=== PATIENT | male | born 1945 | race Caucasian/White ===

== ENCOUNTER 2018-02-13 13:32 | Outpatient (RCR) | payer MEDICARE, MEDICAID, SELFPAY ==
--- NOTE | 2018-02-12 15:01 | NT_ITS ---
NON TREATMENT NOTE: 02/12/18 Patient was a no show no call for today's appointment.
--- NOTE | 2018-02-13 13:17 | PTTR_ITS ---
DATE: 02/13/18 SUBJECTIVE: Pt states that he is doing ok for the most part. Feels like he is getting a little bit stronger. OBJECTIVE: Manual therapy: ([id number]).Pt placed in the supine position receiving oscillatory lateral distraction, as well as scapular jiggles to decrease muscle tension. He is stretched through the pectorals and biceps with low load long duration holds, this is all occurring at the L shoulder. Pt mobilized to end range shoulder flexion, ER and IR without any functional deficit. He is then positioned into prone receiving PA glides to the thoracic spine and light STM through the thoracic paraspinals and with a light scapular framing applied through the L shoulder girdle as well, particularly focusing on the posterior cuff. Pt tolerates treatment well. Direct treatment time: 25 min Total treatment time: 25 min direct pt care WILFRIDO/bakari
--- NOTE | 2018-02-27 13:51 | NT_ITS ---
NON TREATMENT NOTE: 02/27/18 Patient was a no show no call for today's scheduled appointment
== END 2018-03-07 23:59 | disposition home or self-care (01) ==
LOC: PT 13:32
PROVIDERS: PCP Nurse Practitioner Family; Referring Provider Nurse Practitioner Family; Visit Provider Nurse Practitioner Family
DX: M25.512 Pain in left shoulder (principal); M54.5 Low back pain; M25.812 Other specified joint disorders, left shoulder; M79.89 Other specified soft tissue disorders
CPT/HCPCS: 97140

== ENCOUNTER 2018-07-30 01:06 | Outpatient (CLI) | payer MEDICARE, MEDICAID, SELFPAY ==
--- NOTE | 2018-07-30 10:17 | DI.MRI_ITS ---
SYMPTOM/DIAGNOSIS: SPINAL STENOSIS, M48.00, M17.9, OA, CHRONIC NECK PAIN, NUMBNESS BILAT FINGERS CERVICAL SPINE MRI: The study was conducted according to the usual protocol. The paravertebral soft tissues are intact. Note is made of degenerative disease and facet joint arthrosis throughout the cervical spine. There is minimal T 2 signal increase within the cervical cord at the C 3-4 level which is suspicious for a minimal myelopathy. There is no fracture or subluxation. The craniocervical portion of the spine is unremarkable. At C 2-3, there is mild left neural foraminal narrowing. At C 3-4, there is posterior disc osteophyte protrusion and resultant moderate spinal stenosis and bilateral foraminal stenosis. At C 4-5,. there is posterior disc osteophyte ridging. Mild to moderate spinal stenosis is evident. There is moderate to severe bilateral foraminal stenosis at this level. At C 5-6, there is asymmetric left side posterior disc osteophyte ridging. There is mild spinal stenosis and moderate bilateral foraminal stenosis is identified. At C 6-7, there is minimal posterior disc osteophyte ridging and no evidence of spinal stenosis. SUMMARY: Degenerative changes are noted throughout the cervical spine as described above. There is moderate spinal stenosis and findings suspicious for a mild cervical myelopathy at C 3-4. The findings to be correlated with the specifics of the patient's clinical status.
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
== END 2018-07-30 01:26 ==
PROVIDERS: PCP Nurse Practitioner Family; Visit Provider Nurse Practitioner Family
DX: M54.2 Cervicalgia (principal); R20.0 Anesthesia of skin; M48.00 Spinal stenosis, site unspecified; M47.12 Other spondylosis with myelopathy, cervical region
CPT/HCPCS: 72141

== ENCOUNTER 2019-02-03 08:27 | Outpatient (REF) | payer MEDICARE, MEDICAID, SELFPAY ==
[2019-02-03 12:57] LABS: HCT 40.6 % (40.0-50.0); HGB 13.6 g/dL (13.5-17.5); Mean Corp. HGB Concentration 33.5 g/dL (32.0-36.0); Mean Corpuscular Hemoglobin 33.6 pg (27.0-33.0); Mean Corpuscular Volume 100.2 fL (80-95); Mean Platelet Volume 10.6 fL (8.0-11.0); Platelet Count 234 x1000/uL (130-400); RBC 4.05 m/cumm (4.50-6.00); RBC Distribution Width 11.7 % (11.8-14.1); White Blood Cell Count 5.12 k/cumm (4.4-10.8)
[2019-02-03 13:30] LABS: ALT 26 U/L (12-78); AST 26 U/L (15-37); Albumin 3.7 g/dL (3.4-5.0); Alkaline Phosphatase 78 U/L (46-116); Anion Gap 8.4 mmol/L (3-11); BUN 15 mg/dL (7-18); Bilirubin, Total 0.4 mg/dL (0.2-1.0); CO2 27.6 mmol/L (21.0-32.0); CREATININE 0.89 mg/dL (0.70-1.30); Calcium 8.5 mg/dL (8.5-10.1); Chloride 102 mmol/L (98-107); Glucose 88 mg/dL (70-100); Potassium 4.5 mmol/L (3.5-5.1); Sodium 138 mmol/L (136-145); TSH (W/Ref FT4) 1.37 uIU/mL (0.36-3.74); Total Protein 6.5 g/dL (6.4-8.2)
== END 2019-02-03 08:47 ==
LOC: NCHCN 08:27
PROVIDERS: PCP Nurse Practitioner Family; Visit Provider Nurse Practitioner Family
DX: D64.9 Anemia, unspecified (principal); R42 Dizziness and giddiness; R56.9 Unspecified convulsions; Z51.81 Encounter for therapeutic drug level monitoring; Z79.899 Other long term (current) drug therapy
CPT/HCPCS: 80053; 85027; 80185; 84443

== ENCOUNTER 2019-03-09 13:06 | Emergency (ER) | payer MEDICARE, MEDICAID, SELFPAY ==
[2019-03-09 13:16] VITALS: BP 137/79; PULSE 65; RESP 18; TEMP 36.7; O2SAT 96
--- NOTE | 2019-03-09 13:37 | DI.RAD_ITS ---
SYMPTOMS/DIAGNOSIS: PAIN LEFT ELBOW: There is spurring at the triceps insertion on the olecranon. No fracture or joint effusion is seen. The joint spaces are well maintained. IMPRESSION: No acute abnormality.
--- NOTE | 2019-03-09 14:06 | DI.VRAD_ITS ---
EXAM: XR Left Elbow EXAM DATE/TIME: 03/09/2019 1:26 PM CLINICAL HISTORY: 73 years old, male; Left; Patient HX: Elbow pain, no known injury. ; Additional info: Pain on external rotation. TECHNIQUE: Imaging protocol: XR Left elbow. Views: 3 or more views. COMPARISON: CR LEFT ELBOW COMPLETE 09/24/2017 5:56 PM FINDINGS: Bones/joints: No acute fracture or dislocation is identified. There is again mild osteophyte formation of the lateral epicondyle. A similar posterior olecranon osteophyte is present. Soft tissues: The fat pads are not significantly displaced. The soft tissues appear grossly unremarkable. IMPRESSION: Degenerative changes as described similar to 09/24/17. Dictated and Authenticated by: Sunil Miramontes MD. Ordering:KG Provider Temporary
--- NOTE | 2019-03-09 14:07 | W.ED.GENAD ---
Discharge Plan Disposition Patient Disposition: HOME Condition: Stable Discharge Details Chief Complaint: Orthopedic Clinical Impression: Tendinopathy of left elbow Primary Care Provider: Darrell Edouard ED Provider: Omer Braun Home Meds and New Rx's Prescriptions: No Action Flovent HFA 220 mcg/actuation HFA aerosol inhaler 2 puff IH BID RF: 0 acetaminophen [Tylenol Extra Strength] 500 mg tablet 1,000 mg PO PRN PRNRF: 0 hydrocortisone 2.5 % cream 1 applic TP BID RF: 0 phenytoin sodium extended [Dilantin Extended] 100 mg capsule 200 mg PO DAILY RF: 0 albuterol sulfate [Proventil HFA] 90 mcg/actuation HFA aerosol inhaler 2 puff Inhalation .COMPLEX PRNRF: 0 Discharge Instructions Instructions: Elbow Sprain (ED), Tendinitis (ED) Additional Instructions: Over the next 2 to 3 days please rest your left elbow, apply ice for any swelling or discomfort, and take ibuprofen 400 mg every 4-6 hours as needed for pain control. You may slowly advance activity as tolerated by pain and discomfort and if not improving in the next 1 to 2 weeks please follow-up with your primary care provider for reassessment Referrals: Darrell Edouard, PRODUCTION ADMINISTRATOR [Primary Care Provider] - 2 weeks (As needed for reassessment) Discharge Data Discharge Date/Time-TO BE ENTERED AT DEPARTURE: 03/09/19 14:22 Medical Decision Making Patient presenting to the emergency department for chief complaint of left elbow pain. Patient states he was lifting and moving some things around this morning and noticed a pop and significant amount of pain to his elbow. Patient denies any blunt trauma fall or other injury except for the lifting. Patient denies any numbness or tingling but states persistent pain in the elbow. Physical exam shows significant tenderness to the lateral epicondyle otherwise patient has full range of motion, no noted crepitus, no redness swelling or other physical exam findings noted. Plan to do radiological imaging. Imaging reviewed and shows FINDINGS: Bones/joints: No acute fracture or dislocation is identified. There is again mild osteophyte formation of the lateral epicondyle. A similar posterior olecranon osteophyte is present. Soft tissues: The fat pads are not significantly displaced. The soft tissues appear grossly unremarkable. Given this I doubt any occult fracture but more concern for tendinopathy given lifting type injury. Patient was given an Eamon bandage for his elbow which did improve some of his symptoms he was encouraged to rest ice and use compression over the next couple days. Patient to continue to use acetaminophen for discomfort and return for any new or worsening symptoms otherwise to follow-up as needed for reassessment. HPI General Mode of arrival: ambulatory. Date/Time Provider Initiated Documentation: 03/09/19 13:47. Limitations to Documentation: no limitations. Information obtained by: patient and RN notes reviewed. History of Present Illness 73 year old M presents to the emergency department with the chief complaint of Left elbow pain, described as moderate, with intensity rated at 6. Quality is described as sharp, and is localized to the left and upper extremity. Patient started experiencing this hour(s) (4) and it has been constant. No relieving factors improve symptom(s), Other factors that worsen symptoms (Lifting something heavy) . Patient notes no other symptoms.. Patient did receive the following treatments prior to arrival, none Related Data Home Medications Medication Instructions Recorded Confirmed acetaminophen 500 mg tablet 1,000 mg PO PRN PRN tab 09/03/18 03/04/19 albuterol sulfate 90 mcg/actuation 2 puff INHALATION .COMPLEX PRN 09/03/18 03/04/19 aerosol inhaler fluticasone propionate 220 2 puff IH BID gm 09/03/18 03/04/19 mcg/actuation HFA aerosol inhaler hydrocortisone 2.5 % topical cream 1 applic TP BID gm 09/03/18 03/04/19 phenytoin sodium extended 100 mg 200 mg PO DAILY cap 09/03/18 03/09/19 capsule Allergies Allergy/AdvReac Type Severity Reaction Status Date / Time Penicillins Allergy Intermediate Itching Unverified 03/09/19 13:21 Sulfa (Sulfonamide Allergy Unknown unknown Unverified 03/09/19 13:21 Antibiotics) aspirin AdvReac Severe Stomch Unverified 03/09/19 13:21 baldwin oxaprozin [Oxaprozin] AdvReac Intermediate Itching Unverified 03/09/19 13:21 carbamazepine AdvReac Mild Feel Unverified 03/09/19 13:21 dopey mushrooms AdvReac Unknown Nausea Uncoded 03/09/19 13:21 General Stated Complaint: Orthopedic SIMON: 4 Review of Systems Musculoskeletal Reports as per HPI, Denies numbness and Denies tingling Integumentary/Breasts Denies rash, Denies sores and Denies wounds Neurologic Denies numbness and Denies tingling [facility] Medical History Adjustment disorder (Acute) Anemia (Chronic) Asthma (Chronic) Cervicalgia (Acute) Chest pain of unknown etiology (Acute) Depression (Chronic) Dizzy spells (Acute) Dry mouth (Acute) Dysrhythmia (Acute) Epilepsia (Acute) Erectile dysfunction (Acute) GERD (gastroesophageal reflux disease) (Chronic) Grief reaction (Acute) Low back pain (Acute) Migraine headache (Chronic) Muscle spasm (Acute) Osteoarthritis, knee (Acute) Seizure disorder (Chronic) Shoulder joint pain (Acute) Spinal stenosis (Acute) Tension headache (Acute) Surgical History H/O cataract removal with insertion of prosthetic lens (Acute) History of back surgery (Acute) History of tooth extraction (Acute) 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 Social History Smoking/Tobacco Use Status: Former Tobacco Use Alcohol Intake: never Drug use: Rarely Substance use type: does not use Household members: none Housing: apartment Number of Children: 3 current occupation: volunteers What type of physical activity do you participate in: none Do you feel safe at home: Yes Do you feel safe in your relationship?: Yes Exam Const General: cooperative and no acute distress Orientation: alert, awake and oriented x3 Resp Effort & Inspection: normal respiratory effort and able to speak in complete sentences Cardio Rate: regular rate Rhythm: regular rhythm Extrem General: normal exam except as noted Left upper extremity: elbow/forearm Details: tenderness Location: of the lateral epicondyle Details: with resisted pronation, normal ROM and distal pulses intact; no ecchymosis and no deformity Course Vital Signs Temperature 36.7 C 03/09/19 13:16 Pulse 65 03/09/19 13:16 Respiratory Rate 18 03/09/19 13:16 Blood Pressure 137/79 03/09/19 13:16 Pulse Oximetry 96 03/09/19 13:16 Temperature 36.7 C 03/09/19 13:16 Temperature Source Skin 03/09/19 13:16 Pulse 65 03/09/19 13:16 Respiratory Rate 18 03/09/19 13:16 Respiratory Effort Non-Labored 03/09/19 13:19 Blood Pressure 137/79 03/09/19 13:16 Blood Pressure Position Sitting 03/09/19 13:16 Pulse Oximetry 96 03/09/19 13:16 Oxygen Delivery Method Room Air 03/09/19 13:16 Oxygen Flow Rate 0 03/09/19 13:16 Pain Level 6 03/09/19 13:19
[2019-03-09] MEDS: Ibuprofen 600 MG TAB PO (14:22)
== END 2019-03-09 14:22 | disposition home or self-care (01) ==
PROVIDERS: Emergency Provider Nurse Practitioner Family; PCP Nurse Practitioner Family
DX: M77.12 Lateral epicondylitis, left elbow (principal); X50.9XXA Other and unspecified overexertion or strenuous movements or postures, initial encounter
CPT/HCPCS: 99283; 73080

== ENCOUNTER 2019-04-06 08:07 | Outpatient (REF) | payer MEDICARE, MEDICAID, SELFPAY ==
[2019-04-06 13:34] LABS: Folate 4.3 ng/mL (8.6-20.0); Vitamin B12 278 pg/mL (193-986)
[2019-04-06 14:01] LABS: PHENYTOIN (DILANTIN) 7.7 ug/mL (10.0-20.0)
== END 2019-04-06 08:27 ==
LOC: NCHCN 08:07
PROVIDERS: PCP Nurse Practitioner Family; Visit Provider Nurse Practitioner Family
DX: R53.83 Other fatigue (principal); D53.9 Nutritional anemia, unspecified; R56.9 Unspecified convulsions
CPT/HCPCS: 80185; 82607; 82746

== ENCOUNTER 2019-04-16 14:29 | Outpatient (CLI) | payer MEDICARE, MEDICAID, SELFPAY ==
--- NOTE | 2019-04-16 14:30 | DI.RAD_ITS ---
EXAM: XR WRIST LT COMP NAVICULAR INDICATION: left wrist pain after punching a refrigerator M25.532 PAIN LT WRIST. COMPARISON: No exams were available for comparison TECHNIQUE: 2D digital imaging was performed. FINDINGS: Four views were obtained. Carpal alignment appears within normal limits. No fracture is seen. IMPRESSION:
== END 2019-04-16 14:49 ==
PROVIDERS: PCP Nurse Practitioner Family; Visit Provider Nurse Practitioner Family
DX: M25.532 Pain in left wrist (principal)
CPT/HCPCS: 73110

== ENCOUNTER → 2019-04-27 09:40 | Outpatient (BNVA) | payer MEDICARE, MEDICAID, SELFPAY | PROVIDERS: PCP Nurse Practitioner Family; Referring Provider Nurse Practitioner Family; Visit Provider Student in an Organized Health Care Education/Training Program | DX: M77.9 Enthesopathy, unspecified (principal); W22.09XA Striking against other stationary object, initial encounter | CPT/HCPCS: 99203; 99214; L3908 ==

== ENCOUNTER 2019-05-15 10:27 | Emergency (ER) | payer MEDICARE, MEDICAID, SELFPAY ==
[2019-05-15 10:36] VITALS: BP 133/86; PULSE 77; RESP 16; TEMP 37.1; O2SAT 95
--- NOTE | 2019-05-15 10:48 | ED.GENADUL_ITS ---
Discharge Plan Disposition Patient Disposition: HOME Discharge Details Chief Complaint: RashLesion Clinical Impression: Rash, Bed bug bite Primary Care Provider: Darrell Edouard ED Provider: Leland Crews Home Meds and New Rx's Prescriptions: New diphenhydramine HCl [Benadryl] 25 mg capsule 25 mg PO TID PRN (Reason: itching) Qty: 30 RF: 0 hydrocortisone [Cortisone (hydrocortisone)] 1 % cream 1 applic TP BID PRN (Reason: rash) Qty: 30 RF: 0 Continued Flovent HFA 220 mcg/actuation HFA aerosol inhaler 2 puff IH BID RF: 0 phenytoin sodium extended [Dilantin Extended] 100 mg capsule 200 mg PO DAILY RF: 0 albuterol sulfate [Proventil HFA] 90 mcg/actuation HFA aerosol inhaler 2 puff Inhalation .COMPLEX PRNRF: 0 Discharge Instructions Instructions: Bed Bugs (ED) Additional Instructions: Please take medications as prescribed. I am concerned that you have been exposed to bedbugs. Please speak to hotel administration about changing the room and notify them of likely bedbug exposure. Please wash all of your close in hot water. Please contact your primary care physician to arrange follow-up. Return to the ER for any worsening or new concerning symptoms. You are not currently contagious. Bed bugs may hide on clothes, fabrics and linens. All potentially exposed clothes should be washed in hot water. Referrals: Darrell Edouard, PURCHASING ASSOCIATE [Primary Care Provider] - Medical Decision Making 73-year-old male here with rash left upper arm and right upper arm, grouped macules that have been itching over the past week. Patient is staying in a mot el with apparent bedbug issue. Rashes consistent with bedbug bites. Will prescribe Benadryl and cortisone cream. HPI General Mode of arrival: ambulatory . Date/Time Provider Initiated Documentation: 05/15/19 10:35 . Limitations to Documentation: no limitations . Information obtained by: patient . HPI Narrative: 73yo m presents with chief complete of rash. Patient notes rash on his left upper arm that has been itching for the past week. He has similar smaller area of rash right upper arm. No associated fever. Patient has been living in a motel for the past couple we eks. He notes hotel management has been concerned about bedbugs. Related Data Home Medications Medication Instructions Recorded Confirmed albuterol sulfate 90 mcg/actuation 2 puff INHALATION .COMPLEX PRN 09/03/18 05/15/19 aerosol inhaler fluticasone propionate 220 2 puff IH BID gm 09/03/18 05/15/19 mcg/actuation HFA aerosol inhaler phenytoin sodium extended 100 mg 200 mg PO DAILY cap 09/03/18 05/15/19 capsule diphenhydramine HCl [Benadryl] 25 mg PO TID PRN #30 cap 05/15/19 hydrocortisone [Cortisone 1 applic TP BID PRN #30 gm 05/15/19 (hydrocortisone)] Previous Rx's Medication Instructions Recorded diphenhydramine HCl [Benadryl] 25 mg PO TID PRN #30 cap 05/15/19 hydrocortisone [Cortisone 1 applic TP BID PRN #30 gm 05/15/19 (hydrocortisone)] Allergies Allergy/AdvReac Type Severity Reaction Status Date / Time Penicillins Allergy Intermediate Itching Unverified 05/15/19 10:39 Sulfa (Sulfonamide Allergy Unknown unknown Unverified 05/15/19 10:39 Antibiotics) aspirin AdvReac Severe Stomch Unverified 05/15/19 10:39 baldwin oxaprozin [Oxaprozin] AdvReac Intermediate Itching Unverified 05/15/19 10:39 carbamazepine AdvReac Mild Feel Unverified 05/15/19 10:39 dopey mushrooms AdvReac Unknown Nausea Uncoded 05/15/19 10:39 General Stated Complaint: RashLesion SIMON: 4 Review of Systems Constitutional Constitutional: Denies fever(s) Integumentary/Breasts Skin/Breast: Reports as per HPI [facility] Medical History Adjustment disorder (Acute) Anemia (Chronic) Asthma (Chronic) Cervicalgia (Acute) Chest pain of unknown etiology (Acute) Depression (Chronic) Dizzy spells (Acute) Dry mouth (Acute) Dysrhythmia (Acute) Epilepsia (Acute) Erectile dysfunction (Acute) GERD (gastroesophageal reflux disease) (Chronic) Grief reaction (Acute) Low back pain (Acute) Migraine headache (Chronic) Muscle spasm (Acute) Osteoarthritis, knee (Acute) Seizure disorder (Chronic) Shoulder joint pain (Acute) Spinal stenosis (Acute) Tension headache (Acute) Surgical History H/O cataract removal with insertion of prosthetic lens (Acute) History of back surgery (Acute) History of tooth extraction (Acute) 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 Social History Smoking/Tobacco Use Status: Former Tobacco Use Alcohol Intake: never Drug use: Never Substance use type: does not use Household members: none Housing: apartment Number of Children: 3 current occupation: volunteers Current gender identity: male What type of physical activity do you participate in: none Do you feel safe at home: Yes Do you feel safe in your relationship?: Yes Exam Const General: cooperative Orientation: alert and awake Resp Effort & Inspection: normal respiratory effort Auscultation: clear to auscultation bilaterally Cardio Rate: regular rate Rhythm: regular rhythm Skin General skin exam: erythema (mild) and no induration Rashes: rashes noted (Left upper arm with group of raised papules) Extrem Right upper extremity: no edema Left upper extremity: no edema Course Vital Signs Vital signs: Vital Signs Temperature 37.1 C 05/15/19 10:36 Pulse 77 05/15/19 10:36 Respiratory Rate 16 05/15/19 10:36 Blood Pressure 133/86 05/15/19 10:36 Pulse Oximetry 95 05/15/19 10:36 Temperature 37.1 C 05/15/19 10:36 Pulse 77 05/15/19 10:36 Respiratory Rate 16 05/15/19 10:36 Respiratory Effort Non-Labored 05/15/19 10:37 Blood Pressure 133/86 05/15/19 10:36 Blood Pressure Position Sitting 05/15/19 10:36 Pulse Oximetry 95 05/15/19 10:36 Oxygen Delivery Method Room Air 05/15/19 10:36 Oxygen Flow Rate 0 05/15/19 10:36 Pain Level 0 05/15/19 10:36
[2019-05-15] MEDS: diphenhydrAMINE 25 MG CAP PO (10:52)
== END 2019-05-15 11:04 | disposition home or self-care (01) ==
PROVIDERS: Emergency Provider Student in an Organized Health Care Education/Training Program; PCP Nurse Practitioner Family
DX: R21 Rash and other nonspecific skin eruption (principal); S40.861A Insect bite (nonvenomous) of right upper arm, initial encounter; S40.862A Insect bite (nonvenomous) of left upper arm, initial encounter; W57.XXXA Bitten or stung by nonvenomous insect and other nonvenomous arthropods, initial encounter
CPT/HCPCS: 99283

== ENCOUNTER 2019-06-23 08:39 | Outpatient (REF) | payer MEDICARE, MEDICAID, SELFPAY ==
[2019-06-23 12:35] LABS: PHENYTOIN (DILANTIN) 35.1 ug/mL (10.0-20.0)
== END 2019-06-23 08:59 ==
LOC: NCHCN 08:39
PROVIDERS: PCP Nurse Practitioner Family; Visit Provider Nurse Practitioner Family
DX: R56.9 Unspecified convulsions (principal); Z51.81 Encounter for therapeutic drug level monitoring
CPT/HCPCS: 80185

== ENCOUNTER 2019-06-23 13:34 | Outpatient (CLI) | payer MEDICARE, MEDICAID, SELFPAY ==
[2019-06-23 14:31] LABS: ALT 21 U/L (16-63); AST 24 U/L (15-37); Albumin 3.9 g/dL (3.4-5.0); Alkaline Phosphatase 97 U/L (46-116); Anion Gap 5.4 mmol/L (3-11); BUN 15 mg/dL (7-18); Bilirubin, Total 0.4 mg/dL (0.2-1.0); CO2 34.6 mmol/L (21.0-32.0); CREATININE 1.35 mg/dL (0.70-1.30); Calcium 8.4 mg/dL (8.5-10.1); Chloride 103 mmol/L (98-107); Estimated GFR 51.95 (mL/min/1.73m2); Glucose 85 mg/dL (74-106); PHENOBARBITAL 2.6 ug/mL (15.0-40.0); Sodium 143 mmol/L (136-145)
== END 2019-06-23 13:54 ==
PROVIDERS: PCP Nurse Practitioner Family; Visit Provider Nurse Practitioner Family
DX: R56.9 Unspecified convulsions (principal); Z51.81 Encounter for therapeutic drug level monitoring; Z79.899 Other long term (current) drug therapy
CPT/HCPCS: 36415; 80053; 80184

== ENCOUNTER 2019-06-29 11:48 | Outpatient (REF) | payer MEDICARE, MEDICAID, SELFPAY ==
[2019-06-29 19:44] LABS: PHENYTOIN (DILANTIN) 34.3 ug/mL (10.0-20.0)
== END 2019-06-29 12:08 ==
LOC: NCHCN 11:48
PROVIDERS: PCP Nurse Practitioner Family; Visit Provider Nurse Practitioner Family
DX: R56.9 Unspecified convulsions (principal); Z51.81 Encounter for therapeutic drug level monitoring
CPT/HCPCS: 80185

== ENCOUNTER 2019-07-09 11:39 | Outpatient (REF) | payer MEDICARE, MEDICAID, SELFPAY ==
[2019-07-09 19:57] LABS: PHENYTOIN (DILANTIN) 34.1 ug/mL (10.0-20.0)
== END 2019-07-09 11:59 ==
LOC: NCHCN 11:39
PROVIDERS: PCP Nurse Practitioner Family; Visit Provider Nurse Practitioner Family
DX: R56.9 Unspecified convulsions (principal); Z51.81 Encounter for therapeutic drug level monitoring
CPT/HCPCS: 80185

== ENCOUNTER → 2019-07-23 08:57 | Outpatient (BNVA) | payer MEDICARE, MEDICAID, SELFPAY | PROVIDERS: PCP Nurse Practitioner Family; Referring Provider Nurse Practitioner Family; Visit Provider Student in an Organized Health Care Education/Training Program | DX: M47.812 Spondylosis without myelopathy or radiculopathy, cervical region (principal); M54.5 Low back pain; M77.12 Lateral epicondylitis, left elbow | CPT/HCPCS: 99213 ==

== ENCOUNTER → 2019-08-19 08:26 | Outpatient (BNVA) | payer MEDICARE, MEDICAID, SELFPAY | PROVIDERS: PCP Nurse Practitioner Family; Referring Provider Nurse Practitioner Family; Visit Provider Psychiatry & Neurology Neurology | DX: G40.909 Epilepsy, unspecified, not intractable, without status epilepticus (principal) | CPT/HCPCS: 99205; 99215 ==

== ENCOUNTER 2020-09-15 18:38 | Outpatient (REF) | payer OTHER, MEDICAID, SELFPAY ==
[2020-09-15 19:02] LABS: HCT 38.4 % (40.0-50.0); MCH 34.6 pg (27.0-33.0); MCHC 33.9 % (32.0-36.0); MCV 102.1 fL (80-95); MPV 10.6 fL (8.0-11.0); Platelet Count 219 10^3/uL (130-400); RBC 3.76 10^6/uL (4.36-5.78); RDW 11.8 % (11.8-14.1); RDW-SD 44.6 fL; WBC 6.14 10^3/uL (4.4-10.8)
[2020-09-15 19:44] LABS: ALT 23 U/L (16-63); AST 29 U/L (15-37); Albumin 3.9 g/dL (3.4-5.0); Alkaline Phosphatase 74 U/L (46-116); BUN 17 mg/dL (7-18); Bilirubin, Total 0.3 mg/dL (0.2-1.0); CREATININE 1.2 mg/dL (0.70-1.30); Calcium 8.2 mg/dL (8.5-10.1); Calculated LDL 35 mg/dL (<100); Chloride 104 mmol/L (98-107); Cholesterol 132 mg/dL (<200); Estimated GFR 59.35 (mL/min/1.73m2); Folate 8.9 ng/mL (8.6-20.0); Glucose 89 mg/dL (74-106); HDL Cholesterol 41 mg/dL (40-60); Potassium 4.6 mmol/L (3.5-5.1); Sodium 140 mmol/L (136-145); TSH (W/Ref FT4) 1.36 uIU/mL (0.36-3.74); Total Protein 6.7 g/dL (6.4-8.2); Triglyceride 282 mg/dL (<150); Vitamin B12 195 pg/mL (193-986)
[2020-09-16 02:58] LABS: ESR < 1 mm/hr (<or=20)
[2020-09-16 17:05] LABS: CRP, High Sensitivity 0.81 mg/L (See Note)
[2020-09-19 11:23] LABS: Hepatitis C Ab w Rflx HCV PCR Negative (Negative)
[2020-09-19 12:36] LABS: HIV-1/2 Ag & Ab Screen Negative (Negative)
== END 2020-09-15 18:39 | disposition home or self-care (01) ==
LOC: NCHCN 18:38
PROVIDERS: PCP Nurse Practitioner Family; Visit Provider Nurse Practitioner Family
DX: D53.9 Nutritional anemia, unspecified (principal); G31.84 Mild cognitive impairment of uncertain or unknown etiology; M54.2 Cervicalgia; M48.00 Spinal stenosis, site unspecified; Z11.4 Encounter for screening for human immunodeficiency virus [HIV]; Z11.59 Encounter for screening for other viral diseases; E78.89 Other lipoprotein metabolism disorders
CPT/HCPCS: 80053; 80061; 85027; 85652; 86141; 86803; 87389; 82607; 82746; 84443

== ENCOUNTER 2020-10-13 20:26 | Outpatient (CLI) | payer OTHER, MEDICAID, SELFPAY ==
--- NOTE | 2020-10-13 | DI.RAD_ITS ---
EXAM: XR CHEST 2V PA LATERAL CLINICAL HISTORY: COUGH, R05 TECHNIQUE: 2D digital imaging was performed. COMPARISON: CR CHEST 2 VIEWS PA,LAT from 01/17/2018 CR CHEST 2 VIEWS PA,LAT from 01/17/2018 MR MR cervical spine wo from 07/30/2018 FINDINGS: MEDIASTINUM: Normal. HEART: Normal. PULMONARY VASCULATURE: Normal. LUNGS: Clear. PLEURAL SPACE: No pleural effusion or pneumothorax. BONE:Normal. IMPRESSION: No acute pulmonary findings. DATA REPOSITORY: RADIATION DOSE DELIVERED:
== END 2020-10-13 20:46 ==
PROVIDERS: PCP Nurse Practitioner Family; Visit Provider Physician Assistant Medical
DX: R05 Cough (principal)
CPT/HCPCS: 71046

== ENCOUNTER 2020-10-13 20:51 | Outpatient (REF) | payer OTHER, MEDICAID, SELFPAY ==
[2020-10-13 21:14] LABS: Abs Immature Grans 0.02 10^3/uL (0.0-0.06); Absolute Basophil Count 0.01 10^3/uL (0.0-0.2); Absolute Lymphocyte Count 0.82 10^3/uL (1.2-3.4); Absolute Monocyte Count 0.34 10^3/uL (0.1-0.8); Absolute Neutrophil Count 2.86 10^3/uL (1.2-6.7); Basophils % 0.2; HCT 35.9 % (40.0-50.0); HGB 12.5 g/dL (13.5-17.5); Immature Grans % 0.5; Lymphocytes % 20.2; MCH 33.3 pg (27.0-33.0); MCHC 34.8 % (32.0-36.0); MCV 95.7 fL (80-95); Monocytes % 8.4; Neutrophils % 70.7; Nucleated RBC 0 %; Platelet Count 203 10^3/uL (130-400); RBC 3.75 10^6/uL (4.36-5.78); RDW 11.3 % (11.8-14.1); RDW-SD 39.8 fL; WBC 4.05 10^3/uL (4.4-10.8)
[2020-10-13 21:25] LABS: Anion Gap 11.2 mmol/L (3-11); BUN 14 mg/dL (7-18); CO2 27.8 mmol/L (21.0-32.0); CREATININE 0.9 mg/dL (0.70-1.30); Calcium 7.7 mg/dL (8.5-10.1); Chloride 95 mmol/L (98-107); Glucose 95 mg/dL (74-106); Sodium 134 mmol/L (136-145)
[2020-10-15 16:05] LABS: COVID-19 RT-PCR UVMMC Result Positive (Negative)
== END 2020-10-13 20:52 | disposition home or self-care (01) ==
LOC: NCHCN 20:51
PROVIDERS: PCP Nurse Practitioner Family; Visit Provider Physician Assistant Medical
DX: G44.209 Tension-type headache, unspecified, not intractable (principal); R05 Cough; Z20.822 Contact with and (suspected) exposure to COVID-19
CPT/HCPCS: 80048; U0003; 85025

== ENCOUNTER 2021-09-28 18:02 | Outpatient (REF) | payer MEDICARE, MEDICAID, SELFPAY ==
[2021-09-29 13:12] LABS: COVID-19 RT-PCR UVMMC Result Negative (Negative)
== END 2021-09-28 18:03 | disposition home or self-care (01) ==
LOC: LBN 18:02
PROVIDERS: PCP Nurse Practitioner Family; Visit Provider Physician Assistant Medical
DX: Z20.822 Contact with and (suspected) exposure to COVID-19 (principal); R05.8 Other specified cough
CPT/HCPCS: U0003; U0005

== ENCOUNTER 2021-09-30 13:16 | Emergency (ER) | payer MEDICARE, MEDICAID, SELFPAY ==
[2021-09-30] VITALS (26 sets, daily range): BP systolic 108–134; BP diastolic 63–81; PULSE 64–93; RESP 1–29; TEMP 36.6–36.7; O2SAT 92–100
[2021-09-30 14:10] LABS: Source Nasal/Nares
[2021-09-30 14:12] LABS: Abs Immature Grans 0.03 10^3/uL (0.0-0.06); Absolute Basophil Count 0.09 10^3/uL (0.0-0.2); Absolute Eosinophil Count 0.14 10^3/uL (0.0-0.7); Absolute Lymphocyte Count 2.69 10^3/uL (1.2-3.4); Absolute Monocyte Count 0.66 10^3/uL (0.1-0.8); Absolute Neutrophil Count 6.91 10^3/uL (1.2-6.7); Basophils % 0.9; Eosinophils % 1.3; HCT 40.6 % (40.0-50.0); HGB 13.5 g/dL (13.5-17.5); Immature Grans % 0.3; Lymphocytes % 25.6; MCH 33.3 pg (27.0-33.0); MCHC 33.3 % (32.0-36.0); MCV 100.2 fL (80-95); MPV 9.2 fL (8.0-11.0); Monocytes % 6.3; Neutrophils % 65.6; Nucleated RBC 0 %; Platelet Count 316 10^3/uL (130-400); RBC 4.05 10^6/uL (4.36-5.78); RDW 11.9 % (11.8-14.1); RDW-SD 43.7 fL; WBC 10.52 10^3/uL (4.4-10.8)
--- NOTE | 2021-09-30 14:15 | RT.EKG_ITS ---
APPROVED REPORT Exam: Resting ECG Reason for Exam: Near syncope Patient Location: E HR:87 bpm ECG Measurements Heart Rate 87 AXIS MI 149 P 37 QRSd 102 QRS -19 QT 384 T 2 QTc 463 Conclusion Sinus rhythm...normal P axis, V-rate 60- 99 Borderline T abnormalities, diffuse leads...T flat/neg. Sinus. No STEMI. I have reviewed and interpreted ECG and agree with software generated interpretation.
[2021-09-30] MEDS: Normal Saline 1,000 ML 1000 ML IV (14:16)
[2021-09-30] MEDS: Albuterol/Ipratropium 3 ML UPD VIAL UPD (14:18)
[2021-09-30 14:30] LABS: ALT 18 U/L (16-63); AST 19 U/L (15-37); Albumin 3.6 g/dL (3.4-5.0); Alkaline Phosphatase 93 U/L (46-116); Anion Gap 8.5 mmol/L (3-11); BUN 10 mg/dL (7-18); Bilirubin, Total 0.3 mg/dL (0.2-1.0); CO2 25.5 mmol/L (21.0-32.0); Calcium 8.4 mg/dL (8.5-10.1); Chloride 104 mmol/L (98-107); Glucose 91 mg/dL (74-106); Potassium 4.1 mmol/L (3.5-5.1); Sodium 138 mmol/L (136-145); Troponin I < 50 ng/L (<or=60)
--- NOTE | 2021-09-30 14:45 | DI.RAD_ITS ---
Exam(s) XR CHEST 2V PA LATERAL EXAM: XR CHEST 2V PA LATERAL CLINICAL HISTORY: cough TECHNIQUE: 2D digital imaging was performed. COMPARISON: CR XR CHEST 2V PA LATERAL from 10/13/2020 FINDINGS: MEDIASTINUM: Normal. HEART: Normal. PULMONARY VASCULATURE: Normal. LUNGS: Clear. PLEURAL SPACE: No pleural effusion or pneumothorax. BONE:Pectus excavatum deformity. Mild degenerative changes in the spine. IMPRESSION: No acute abnormality. DATA REPOSITORY: RADIATION DOSE DELIVERED:
[2021-09-30 14:49] LABS: COVID-19 PCR Negative (Negative)
[2021-09-30 15:22] LABS: D-Dimer 302 ng/mlFEU (<500)
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
[2021-09-30] MEDS: Normal Saline Flush 10 ML SYR IVP (15:30)
[2021-09-30] MEDS: methylPREDNISolone SUCC 125 MG VIAL IVP (15:30)
--- NOTE | 2021-09-30 16:30 | RT.EKG_ITS ---
APPROVED REPORT Exam: Resting ECG Reason for Exam: Near Syncope Patient Location: E HR:74 bpm ECG Measurements Heart Rate 74 AXIS WV 155 P 42 QRSd 100 QRS -19 QT 402 T 12 QTc 447 Conclusion Sinus rhythm...normal P axis, V-rate 60- 99. Sinus. No STEMI. I have reviewed and interpreted ECG and agree with software generated interpretation.
[2021-09-30 16:50] LABS: Troponin I < 50 ng/L (<or=60)
--- NOTE | 2021-09-30 17:05 | DI.VRAD_ITS ---
PROCEDURE INFORMATION: Exam: XR Chest Exam date and time: 09/30/2021 3:24 PM Age: 76 years old Clinical indication: Cough TECHNIQUE: Imaging protocol: XR of the chest. Views: 2 views. COMPARISON: CR XR CHEST 2V PA LATERAL 10/13/2020 3:49 PM FINDINGS: Lungs: The lungs are clear. There is no pulmonary vascular congestion. Pleural spaces: There are no pleural effusions present. There is no evidence of pneumothorax. Heart/Mediastinum: Heart size is within normal limits. 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 Bones/joints: Unremarkable. IMPRESSION: No active cardiopulmonary disease identified. Dictated and Authenticated by: Colton Menchaca MD. Ordering:KARLA Tello MD
[2021-09-30] MEDS: Doxycycline Hyclate 100 MG CAP PO (17:40)
--- NOTE | 2021-10-16 08:15 | NUR.NOTE ---
Normal saline 1000cc bolus infused as ordered at 1516 on 09/30/21
== END 2021-09-30 18:00 | disposition home or self-care (01) ==
PROVIDERS: Nurse Practitioner Family; Emergency Provider Registered Nurse Emergency; PCP Nurse Practitioner Family
DX: R55 Syncope and collapse (principal); R05.9 Cough, unspecified; Z20.822 Contact with and (suspected) exposure to COVID-19
CPT/HCPCS: 36415; 80053; 87635; 93005; 94640; 96361; 96374; 99284; 71046; 83605; 84484; 85025; 85379; 93010; J2930; J7620

== ENCOUNTER 2021-10-13 08:47 | Emergency (ER) | payer MEDICARE, MEDICAID, SELFPAY ==
--- NOTE | 2021-10-13 08:45 | RT.EKG_ITS ---
APPROVED REPORT Exam: Resting ECG Reason for Exam: CHEST PAIN Patient Location: E HR:89 bpm ECG Measurements Heart Rate 89 AXIS NH 142 P 49 QRSd 99 QRS 1 QT 364 T 13 QTc 444 Conclusion Sinus rhythm...normal P axis, V-rate 60- 99. Sinus. No STEMI. I have reviewed and interpreted ECG and agree with software generated interpretation.
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
--- NOTE | 2021-10-13 09:15 | DI.RAD_ITS ---
Exam(s) XR PORTABLE CHEST AP EXAM: XR PORTABLE CHEST AP CLINICAL HISTORY: cough, r/o acute disease. TECHNIQUE: 2D digital imaging was performed. COMPARISON: CR XR CHEST 2V PA LATERAL from 10/13/2020 CR,XR XR CHEST 2V PA LATERAL from 09/30/2021 FINDINGS: Single AP portable view. Heart size is upper normal. The mediastinum is not widened. Mild increased markings in the right lung base. Left lung clear. Pleural effusions. No pneumothorax. No pulmonary edema. IMPRESSION: Mild increased markings in the right lung base. Recommend nonportable PA and lateral views when clin ically possible. DATA REPOSITORY: RADIATION DOSE DELIVERED: All CT scans at this facility use at least one of these dose optimization techniques: automated exposure control; mA and/or kV adjustment per patient size (includes targeted e xams where dose is matched to clinical indication); or iterative reconstruction.
[2021-10-13 09:17] VITALS: BP 113/47; PULSE 95; RESP 16; TEMP 36.7; O2SAT 96
[2021-10-13 09:41] LABS: Abs Immature Grans 0.07 10^3/uL (0.0-0.06); Absolute Basophil Count 0.05 10^3/uL (0.0-0.2); Absolute Eosinophil Count 0.05 10^3/uL (0.0-0.7); Absolute Lymphocyte Count 1.55 10^3/uL (1.2-3.4); Absolute Monocyte Count 0.81 10^3/uL (0.1-0.8); Absolute Neutrophil Count 10.37 10^3/uL (1.2-6.7); Basophils % 0.4; Eosinophils % 0.4; HCT 37.3 % (40.0-50.0); HGB 12.5 g/dL (13.5-17.5); Immature Grans % 0.5; MCH 33.2 pg (27.0-33.0); MCHC 33.5 % (32.0-36.0); MCV 99.2 fL (80-95); Monocytes % 6.3; Neutrophils % 80.4; Nucleated RBC 0 %; Platelet Count 293 10^3/uL (130-400); RBC 3.76 10^6/uL (4.36-5.78); RDW 11.8 % (11.8-14.1)
[2021-10-13 10:04] LABS: ALT 31 U/L (16-63); AST 31 U/L (15-37); Albumin 3.5 g/dL (3.4-5.0); Alkaline Phosphatase 66 U/L (46-116); Anion Gap 7.5 mmol/L (3-11); BUN 7 mg/dL (7-18); Bilirubin, Total 0.6 mg/dL (0.2-1.0); CO2 27.5 mmol/L (21.0-32.0); CREATININE 0.9 mg/dL (0.70-1.30); Calcium 8.9 mg/dL (8.5-10.1); Chloride 99 mmol/L (98-107); Glucose 120 mg/dL (74-106); Magnesium 2.1 mg/dL (1.8-2.4); Potassium 3.8 mmol/L (3.5-5.1); Sodium 134 mmol/L (136-145); Total Protein 7.5 g/dL (6.4-8.2); Troponin I < 50 ng/L (<or=60)
[2021-10-13 10:37] LABS: COVID-19 PCR Negative (Negative); Influenza A PCR Negative (Negative); Influenza B PCR Negative (Negative); RSV PCR Negative (Negative)
[2021-10-13] MEDS: Omeprazole 20 MG CAPCR PO (11:05)
--- NOTE | 2021-10-13 11:15 | DI.RAD_ITS ---
Exam(s) XR CHEST 2V PA LATERAL EXAM: XR CHEST 2V PA LATERAL CLINICAL HISTORY: cough, r/o acute disease. TECHNIQUE: 2D digital imaging was performed. COMPARISON: CR CHEST 2 VIEWS PA,LAT from 11/07/2009 CT CHEST WITH CONTRAST from 01/18/2010 CT CHEST - LUNG CANCER SCREENING from 01/16/2016 CR CHEST 2 VIEWS PA,LAT from 01/17/2018 CR XR CHEST 2V PA LATERAL from 10/13/2020 CR,XR XR CHEST 2V PA LATERAL from 09/30/2021 CR XR PORTABLE CHEST AP from 10/13/2021 FINDINGS: 2 views: Heart size is normal. The mediastinum is not widened. Lungs are clear. No infiltrates nor pleural effusions. Slightly prominent left parahilar finding is most probably a pulmonary vessel as it is unchanged from 2009. IMPRESSION: No acute pulmonary findings. DATA REPOSITORY: RADIATION DOSE DELIVERED:
== END 2021-10-13 12:40 | disposition home or self-care (01) ==
PROVIDERS: Emergency Provider Physician Assistant; PCP Nurse Practitioner Family
DX: R05.3 Chronic cough (principal); K21.9 Gastro-esophageal reflux disease without esophagitis; Z20.822 Contact with and (suspected) exposure to COVID-19
CPT/HCPCS: 36415; 80053; 87637; 93005; 99284; 71045; 71046; 83735; 84484; 85025; 93010; 99283

== ENCOUNTER → 2021-10-13 13:02 | Outpatient (CLI) | payer MEDICARE, MEDICAID, SELFPAY ==
--- NOTE | 2021-10-13 | DI.CT_ITS ---
Exam(s) CT CHEST W EXAM: CT CHEST W CLINICAL HISTORY: COUGH, UNEXPLAINED WT LOSS, DYSPNEA, R05.8, R63.4, R06.00. TECHNIQUE: Multi planar reconstructions were performed. CONTRAST MATERIAL: Omnipaque 350; 75 cc COMPARISON: CT CTA CHEST AND ABD WITHOUT AND WITH from 01/17/2018 CR XR CHEST 2V PA LATERAL from 10/13/2021 FINDINGS: CHEST: LUNGS: There is interstitial partially confluent infiltrate in both lower lobes, specifically in the posterior basal segments of both lower lobes, not evident on the prior CT study January 2018 no cavitati on. There is no infiltrate in the superior segments the lower lobes nor in the upper lobes nor in th e right middle lobe. Few small pleural base nodular densities laterally over the right middle lobe a re unchanged as is a small 3 millimeter nodule in the lateral segment of the right middle lobe. Ther e is a small pleural based nodule in the anterior basal segment of the left lower lobe which is also unchanged from 2018. No new significant focal findings in the trachea and mainstem bronchi. MEDIASTINUM: There is no hilar nor mediastinal adenopathy. Visualized thyroid unremarkable. CARDIAC: Heart size upper normal. There is no pericardial effusion.Diameter of the ascending thoraci c aorta is within normal limits, measuring 3.5 cm. However, there is some dilatation of the aortic a rch noted which exhibits a diameter of 3.5 cm, unchanged. The proximal descending thoracic aorta exh ibits increased diameter of 3 cm. The mid descending thoracic aorta exhibits a diameter of 2.5 cm, w ithin normal limits and the same is true of the lower descending thoracic aorta. There is no evidenc e of aortic dissection VISUALIZED UPPER ABDOMEN:No adrenal masses. No splenomegaly. Cholelithiasis noted. There is a 1.3 cm gallstone other dependent wall the gallbladder. No gallbladder wall edema. CBD not dilated. OSSEOUS: No significant osseous lesions.. IMPRESSION: 1. There is infiltrate in both lower lobes as described above. No associated pleural effusions nor i ntrathoracic adenopathy. 2. Unchanged nodular densities in the right middle lobe as well as type unchanged small nodular densi ty in the anterior basal segment of the left lower lobe. 3. Cholelithiasis incidentally noted. RADIATION DOSE DELIVERED: 464.11mGy.cm Total DLP DATA REPOSITORY: All CT scans at this facility are submitted to the National Radiology Data Registry (NRDR) Dose Index Registry (DIR) with the [employer] ([employer]). RADIATION OPTIMIZATION: All CT scans at this facility use at least one of these dose optimization te chniques: automated exposure control; mA and/or kV adjustment per patient size (includes targeted exa ms where dose is matched to clinical indication); or iterative reconstruction.
[2021-10-13] MEDS: Omnipaque 350 MG/ML 100 ML BTL IJ (13:25)
== END ==
PROVIDERS: PCP Nurse Practitioner Family; Visit Provider Nurse Practitioner Family
DX: R05.8 Other specified cough (principal); R63.4 Abnormal weight loss; R06.09 Other forms of dyspnea; R91.8 Other nonspecific abnormal finding of lung field; K80.20 Calculus of gallbladder without cholecystitis without obstruction
CPT/HCPCS: 71260; J3490

== ENCOUNTER 2021-10-13 18:08 | Outpatient (REF) | payer MEDICARE, MEDICAID, SELFPAY ==
[2021-10-13 17:31] LABS: ALT 32 U/L (16-63); AST 31 U/L (15-37); Albumin 3.8 g/dL (3.4-5.0); Alkaline Phosphatase 70 U/L (46-116); Anion Gap 8.8 mmol/L (3-11); BUN 8 mg/dL (7-18); Bilirubin, Total 0.6 mg/dL (0.2-1.0); CO2 27.2 mmol/L (21.0-32.0); CREATININE 0.9 mg/dL (0.70-1.30); Chloride 98 mmol/L (98-107); Glucose 104 mg/dL (74-106); Potassium 4.3 mmol/L (3.5-5.1); Sodium 134 mmol/L (136-145); Total Protein 7.2 g/dL (6.4-8.2)
== END 2021-10-13 18:09 | disposition home or self-care (01) ==
LOC: NCHCN 18:08
PROVIDERS: PCP Nurse Practitioner Family; Visit Provider Nurse Practitioner Family
DX: R05.8 Other specified cough (principal); R63.4 Abnormal weight loss; R06.00 Dyspnea, unspecified
CPT/HCPCS: 80053

== ENCOUNTER 2021-10-25 12:06 | Outpatient (CLI) | payer MEDICARE, MEDICAID, SELFPAY ==
--- NOTE | 2021-10-25 | DI.RAD_ITS ---
Exam(s) XR CHEST 2V PA LATERAL EXAM: XR CHEST 2V PA LATERAL CLINICAL HISTORY: COUGH - R05.8 TECHNIQUE: 2D digital imaging was performed. COMPARISON: CR XR CHEST 2V PA LATERAL from 10/13/2021 FINDINGS: The heart is not enlarged. The lungs are clear and well expanded. No pleural effusion seen. Mediastin al contours appear intact. IMPRESSION: Normal chest. RADIATION DOSE DELIVERED: Total DLP
== END 2021-10-25 12:26 ==
PROVIDERS: PCP Nurse Practitioner Family; Visit Provider Family Medicine
DX: R05.8 Other specified cough (principal)
CPT/HCPCS: 71046

== ENCOUNTER → 2023-03-19 15:31 | Outpatient (CLI) | payer MEDICARE, MEDICAID, SELFPAY ==
--- NOTE | 2023-03-19 | DI.RAD_ITS ---
Exam(s) XR WRIST RT COMPLETE EXAM: XR WRIST RT COMPLETE CLINICAL HISTORY: PAIN IN RT WRIST-M25.531. TECHNIQUE: 2D digital imaging was performed. Three views. COMPARISON: CR XR WRIST LT COMP NAVICULAR from 04/16/2019 FINDINGS: BONES: No acute fracture is present. No bony destructive lesion is seen. JOINTS: The carpal bones are normally aligned. Minimal degenerative changes. SOFT TISSUE: Vascular calcifications. IMPRESSION: Minimal degenerative changes. DATA REPOSITORY: RADIATION DOSE DELIVERED:
== END ==
PROVIDERS: PCP Physician Assistant; Visit Provider Physician Assistant
DX: M25.531 Pain in right wrist (principal)
CPT/HCPCS: 73110

== ENCOUNTER 2023-06-24 22:41 | Emergency (ER) | payer MEDICARE, MEDICAID, SELFPAY ==
[2023-06-24 22:43] VITALS: BP 136/90; PULSE 84; RESP 16; TEMP 37; O2SAT 98
--- NOTE | 2023-06-24 22:45 | DI.CT_ITS ---
Exam(s) CT HEAD CERVICAL SPINE WO EXAM: CT HEAD CERVICAL SPINE WO CLINICAL HISTORY: fall, hit head, +LOC. TECHNIQUE: Imaging Protocol: Axial computed tomography images with coronal and sagittal reformatted images were created and reviewed COMPARISON: No exams were available for comparison FINDINGS: BRAIN: There are no skull fractures nor fluid in the visualized paranasal sinuses. There is no evidence of intracranial hemorrhage, mass effect, or shift of midline structures. There are no extra-axial fluid collections. The ventricles are not enlarged or shifted and there is no blo od within the ventricular system nor within the basal cisterns. CERVICAL SPINE: There is no evidence of fracture nor listhesis. No significant prevertebral soft tissue swelling. There is no significant facet joint malalignment. No significant osseous lesions evident. IMPRESSION: No acute intracranial findings on this noninfused CT scan of the brain. No evidence of cervical spine fracture, malalignment, nor acute compromise of the cervical spinal can al. RADIATION DOSE DELIVERED: Total DLP DATA REPOSITORY: All CT scans at this facility are submitted to the National Radiology Data Registry (NRDR) Dose Index Registry (DIR) with the [employer] (ACR). RADIATION OPTIMIZATION: All CT scans at this facility use at least one of these dose optimization te chniques: automated exposure control; mA and/or kV adjustment per patient size (includes targeted exa ms where dose is matched to clinical indication); or iterative reconstruction.
--- NOTE | 2023-06-24 22:45 | DI.CT_ITS ---
Exam(s) CT CHEST/ABD/PEL W EXAM: CT CHEST/ABD/PEL W CLINICAL HISTORY: fall, left rib and flank/abd pain. TECHNIQUE: Imaging Protocol: Axial computed tomography images with coronal and sagittal reformatted images were created and reviewed CONTRAST MATERIAL: Intravenous: Omnipaque 350 Contrast volume:100 ml Oral: None COMPARISON: CT CTA CHEST AND ABD WITHOUT AND WITH from 01/17/2018 FINDINGS: CHEST: LUNGS: No evidence of lung contusion or pleural effusion nor pneumothorax. There are few small nodul es incidentally noted bilaterally. These all have similar appearance and subpleural location. There are no pleural effusions.. MEDIASTINUM: No evidence of sternal fracture or mediastinal hematoma. No hilar nor mediastinal adeno aline. Visualized thyroid unremarkable. CARDIAC: Heart size is normal. There is no pericardial effusion.Diameter of the ascending thoracic a tony is upper normal. There is widening of the diameter of the aortic arch which measures up to 3.5 cm. The upper descending thoracic aorta is also wide, measuring 3 cm. The diameter of the mid desce nding thoracic aorta is upper normal, measuring 2.6 cm. Diameter of the descending lower thoracic ao rta is 2.5 cm. OSSEOUS: No rib nor sternal fractures and no compression fractures in the vertebral bodies.. ABDOMEN: There is no ascites. No hemo peritoneum. No evidence of mesenteric nor bowel wall hematoma. LIVER: No laceration nor other significant focal findings. GALLBLADDER/BILIARY: There is at least 1 gallstone in the gallbladder lumen. No gallbladder wall sandra ma. CBD is not dilated. PANCREAS: No evidence of pancreatic mass nor dilatation of the pancreatic duct. SPLEEN: No laceration nor subcapsular hematoma. Normal size. No lesions. Splenic and portal veins are patent. ADRENALS: There are no significant adrenal masses. KIDNEYS: No evidence of renal lacerations nor subcapsular hematomas.. No significant focal renal fin dings. No calculi. No hydronephrosis. ABDOMINAL AORTA: , With maximum diameter of 2.6 cm. Common iliac arteries are calcified but not enla rged. LYMPH NODES: There is no retroperitoneal nor paraaortic adenopathy. ABDOMINAL WALL: No subcutaneous bruising nor fluid collections. No significant anterior abdominal he rnia. GI: There is no evidence of bowel obstruction. PELVIS: LYMPH NODES: There is no intrapelvic nor inguinal adenopathy. GI: No evidence of appendicitis.No evidence of sigmoid diverticulitis. URINARY BLADDER: No radiopaque calculi nor clots evident within the bladder lumen. There is some uni form thickening of the bladder wall but this may be exaggerated by under distension. Pelvic ureters are not dilated. REPRODUCTIVE: Prostate size not enlarged. Seminal vesicles unremarkable. OSSEOUS: Multilevel disc space narrowing L3-4 and L4-5 levels. Facet arthropathy at multiple levels. There is mild degenerative anterolisthesis L3 upon L4. No significant osseous lesions. IMPRESSION: 1. No significant trauma sequelae in the chest, abdomen, and pelvis. 2. Incidental note of multiple bilateral small sub cm lung nodules which are subpleural in location. Recommend follow-up CT scan in 6 months. 3. Although the ascending thoracic aorta exhibits normal diameter, the diameter of the mid aortic arc h and descending thoracic aorta are enlarged. There is also mild fusiform aneurysmal dilatation of t he infrarenal abdominal aortic aneurysm. All measurements as above. No evidence of dissection. No aneurysms evident in the iliac vessels. 4. Cholelithiasis without evidence of acute cholecystitis. RADIATION DOSE DELIVERED: Total DLP DATA REPOSITORY: All CT scans at this facility are submitted to the National Radiology Data Registry (NRDR) Dose Index Registry (DIR) with the [employer] (ACR). RADIATION OPTIMIZATION: All CT scans at this facility use at least one of these dose optimization te chniques: automated exposure control; mA and/or kV adjustment per patient size (includes targeted exa ms where dose is matched to clinical indication); or iterative reconstruction.
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
[2023-06-24 23:02] LABS: Abs Immature Grans 0.02 10^3/uL (0.0-0.06); Absolute Basophil Count 0.08 10^3/uL (0.0-0.2); Absolute Eosinophil Count 0.23 10^3/uL (0.0-0.7); Absolute Lymphocyte Count 2.79 10^3/uL (1.2-3.4); Absolute Monocyte Count 0.85 10^3/uL (0.1-0.8); HCT 40.3 % (40.0-50.0); HGB 13.7 g/dL (13.5-17.5); Immature Grans % 0.3; Lymphocytes % 35.9; MCH 33.3 pg (27.0-33.0); MCV 98 fL (80-95); MPV 9.6 fL (8.0-11.0); Monocytes % 10.9; Neutrophils % 48.9; Platelet Count 246 10^3/uL (130-400); RBC 4.12 10^6/uL (4.36-5.78); RDW 11.9 % (11.8-14.1); WBC 7.77 10^3/uL (4.4-10.8)
[2023-06-24] MEDS: Acetaminophen 500 MG TAB 1000 MG PO (23:03)
[2023-06-24 23:13] LABS: BUN 14 mg/dL (7-18); Calcium 9.1 mg/dL (8.5-10.1); Chloride 103 mmol/L (98-107); Glucose 121 mg/dL (74-106); Potassium 3.8 mmol/L (3.5-5.1); Sodium 138 mmol/L (136-145)
[2023-06-24 23:24] LABS: PHENYTOIN (DILANTIN) 1.8 ug/mL (10.0-20.0)
[2023-06-24] MEDS: Omnipaque 350 MG/ML 100 ML BTL IJ (23:30)
[2023-06-24] MEDS: Normal Saline - Diluent 50 ML VIAL IJ (23:30)
[2023-06-24] MEDS: Normal Saline Flush 10 ML SYR IVP (23:31)
--- NOTE | 2023-06-25 00:24 | DI.VRAD_ITS ---
PROCEDURE INFORMATION: Exam: CT Head Without Contrast Exam date and time: 06/24/2023 11:32 PM Age: 78 years old Clinical indication: Injury or trauma; Blunt trauma (contusions or hematomas); With loss of consciousness; Not specified; Injury date: 06/24/23; Injury details: Fall, hit head, + loc TECHNIQUE: Imaging protocol: Computed tomography of the head without contrast. Radiation optimization: All CT scans at this facility use at least one of these dose optimization techniques: automated exposure control; mA and/or kV adjustment per patient size (includes targeted exams where dose is matched to clinical indication); or iterative reconstruction. COMPARISON: No relevant prior studies available. FINDINGS: Brain: Normal. Cerebral ventricles: No ventriculomegaly. Paranasal sinuses: Minimal ethmoid sinus disease. Mastoid air cells: Normal as visualized. Bones/joints: Normal. Soft tissues: Unremarkable. IMPRESSION: No acute intracranial abnormality. PROCEDURE INFORMATION: Exam: CT Cervical Spine Without Contrast Exam date and time: 06/24/2023 11:32 PM Age: 78 years old Clinical indication: Injury or trauma; Blunt trauma (contusions or hematomas); With loss of consciousness; Not specified; Injury date: 06/24/23; Injury details: Fall, hit head, + loc TECHNIQUE: Imaging protocol: Computed tomography of the cervical spine without contrast. Radiation optimization: All CT scans at this facility use at least one of these dose optimization techniques: automated exposure control; mA and/or kV adjustment per patient size (includes targeted exams where dose is matched to clinical indication); or iterative reconstruction. COMPARISON: MR cervical spine wo 07/30/2018 9:47 AM FINDINGS: Bones/joints: Degenerative changes of the atlantoaxial articulation. Multilevel cervical spine degenerative disc disease, worst at the C6-C7 and C7-T1 levels, where there is moderate disc space narrowing and minimal osteophyte formation. Mild multilevel bilateral facet and uncovertebral arthropathy. Bilateral C3-C4, bilateral C4-C5, left C5-C6, and bilateral C6-C7 neural foraminal narrowing. No acute fracture or malalignment. Lungs: Lung apices are normal. Soft tissues: Normal. IMPRESSION: No acute fracture or malalignment. Dictated and Authenticated by: Ke Leija MD. Ordering:MARY Montana MD
--- NOTE | 2023-06-25 00:57 | DI.VRAD_ITS ---
Addendum created by Ye Rg MD on 06/25/2023 12:57:33 AM EST: THIS REPORT CONTAINS FINDINGS THAT MAY BE CRITICAL TO PATIENT CARE. The findings were verbally communicated via telephone conference with LEXI RENDON at 12:57 AM EST on 06/25/2023. The findings were acknowledged and understood. Initial report created on 06/25/2023 12:57:12 AM EST: PROCEDURE INFORMATION: Exam: CT Chest With Contrast; Diagnostic Exam date and time: 06/24/2023 11:49 PM Age: 78 years old Clinical indication: Injury or trauma; Generalized; Blunt trauma (contusions or hematomas); Injury date: 06/24/23; Injury details: Fall out of bed, left rib pain and flank, abd pain TECHNIQUE: Imaging protocol: Diagnostic computed tomography of the chest with contrast. Radiation optimization: All CT scans at this facility use at least one of these dose optimization techniques: automated exposure control; mA and/or kV adjustment per patient size (includes targeted exams where dose is matched to clinical indication); or iterative reconstruction. Contrast material: OMNIPAQUE 350; Contrast volume: 100 ml; Contrast route: INTRAVENOUS (IV); COMPARISON: CT CHEST W 10/13/2021 1:12 PM FINDINGS: Lungs: There are 1-4.5 mm diameter subpleural pulmonary nodules present within both lungs. For patients at low risk (minimal or absent history of smoking and of other known risk factors), no routine follow-up is indicated. For patients at high risk (history of smoking or of other known risk factors), consider optional CT Chest at 12 months. (Reference: Laurent). There is heterogeneous attenuation of the pulmonary parenchyma, consistent with air trapping from underlying small airways disease. [id number] emphysematous changes present within the lungs bilaterally. Atelectatic changes present within the bases of the lungs posteriorly. Pleural spaces: Unremarkable. No pneumothorax. No pleural effusion. Heart: Unremarkable. No cardiomegaly. No pericardial effusion. Coronary arteries: There is moderate atherosclerotic calcification of the coronary arteries. There is moderate atherosclerotic calcification of the coronary arteries. Lymph nodes: Unremarkable. No enlarged lymph nodes. Vasculature: The aorta demonstrates mild atherosclerotic calcification. The pulmonary arteries are not enlarged. 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 There appears to be filling defects seen within the right lower lobe pulmonary artery best demonstrated on image 400 axial series 7 additional filling defects present within the right middle pulmonary artery image 389 series 7 and the proximal right lower lobe pulmonary artery image 389 series 7. Intraperitoneal space: Please see CT of the abdomen and pelvis. Bones/joints: The skeletal structures and soft tissues show no evidence of fracture or other acute processes. Soft tissues: The soft tissues of the extrathoracic region are unremarkable. IMPRESSION: 1. There appears to be filling defects seen within the right lower lobe pulmonary artery best demonstrated on image 400 axial series 7 additional filling defects present within the right middle pulmonary artery image 389 series 7 and the proximal right lower lobe pulmonary artery image 389 series 7. 2. There are 1- 4.5 mm diameter subpleural pulmonary nodules present within both lungs.For patients at low risk (minimal or absent history of smoking and of other known risk factors), no routine follow-up is indicated. For patients at high risk (history of smoking or of other known risk factors), consider optional CT Chest at 12 months. (Reference: Laurent). 3. There is heterogeneous attenuation of the pulmonary parenchyma, consistent with air trapping from underlying small airways disease. 4. No evidence of acute thoracic trauma. REFERENCES: Laurent Iniguez, et al. Guidelines for Management of Incidental Pulmonary Nodules Detected on CT Images: From the Fleischner Society 2017. Radiology. 2017;284(1):228-243. PROCEDURE INFORMATION: Exam: CT Abdomen And Pelvis With Contrast Exam date and time: 06/24/2023 11:49 PM Age: 78 years old Clinical indication: Injury or trauma; Generalized; Blunt trauma (contusions or hematomas); Injury date: 06/24/23; Injury details: Fall out of bed, left rib pain and flank, abd pain TECHNIQUE: Imaging protocol: Computed tomography of the abdomen and pelvis with contrast. Radiation optimization: All CT scans at this facility use at least one of these dose optimization techniques: automated exposure control; mA and/or kV adjustment per patient size (includes targeted exams where dose is matched to clinical indication); or iterative reconstruction. Contrast material: OMNIPAQUE 350; Contrast volume: 100 ml; Contrast route: INTRAVENOUS (IV); COMPARISON: CTA CHEST AND ABD WITHOUT AND WITH 01/17/2018 10:26 PM FINDINGS: Liver: There is a diffuse decrease in hepatic parenchymal density, consistent with mild fatty infiltration. There are no focal liver lesions present. Gallbladder and bile ducts: There are calcified gallstones present within the gallbladder lumen. There is no wall thickening or pericholecystic fluid. Findings consistant with cholelitiasis without cholecystitis. Pancreas: The pancreas is normal. Spleen: The spleen is normal. Adrenal glands: The adrenal glands are normal. Kidneys and ureters: The kidneys are normal. Stomach and bowel: There is moderate increased colonic fecal content. The colon is mildly distended. These findings suggest a moderate degree of constipation. Clinical correlation recommended. Appendix: A normal appendix is identified. There is no evidence of distention or periappendiceal inflammation to suggest appendicitis. Intraperitoneal space: There is no free intraperitoneal air. There is no evidence of free intraperitoneal or pelvic fluid. Vasculature: The aorta demonstrates mild atherosclerotic calcification. The arterial peripheral vasculature demonstrates diffuse mild atherosclerotic calcification. The inferior venacava appears normal.The portal, mesenteric and splenic veins are patent. Lymph nodes: There is no evidence of lymphadenopathy. Urinary bladder: The bladder is normal. Reproductive: The prostate gland and seminal vesicles are normal. Bones/joints: Degenerative changes lumbosacral spine with prior laminectomies. Soft tissues: The extra-abdominal soft tissues are normal. IMPRESSION: 1. Findings consistant with cholelitiasis without cholecystitis. 2. Hepatic steatosis. 3. No evidence of acute intra-abdominal injury Dictated and Authenticated by: Ye Rg MD. Ordering:MARY Montana MD
[2023-06-25 01:22] LABS: D-Dimer 594 ng/mlFEU (<500)
[2023-06-25] MEDS: Lidocaine 5% Patch 1 PATCH TP (01:37)
== END 2023-06-25 01:38 | disposition home or self-care (01) ==
PROVIDERS: Emergency Provider Student in an Organized Health Care Education/Training Program; PCP Physician Assistant
DX: R07.81 Pleurodynia (principal); S20.211A Contusion of right front wall of thorax, initial encounter; S09.90XA Unspecified injury of head, initial encounter; W06.XXXA Fall from bed, initial encounter; R91.1 Solitary pulmonary nodule; G40.909 Epilepsy, unspecified, not intractable, without status epilepticus; Z79.899 Other long term (current) drug therapy; Z88.6 Allergy status to analgesic agent; Z88.8 Allergy status to other drugs, medicaments and biological substances; Z91.018 Allergy to other foods; J45.909 Unspecified asthma, uncomplicated
CPT/HCPCS: 74177; 80048; 99285; 70450; 71260; 72125; 80185; 85025; 85379; J3490

== ENCOUNTER → 2023-07-15 22:17 | Outpatient (CLI) | payer MEDICARE, MEDICAID, SELFPAY ==
--- NOTE | 2023-07-15 15:54 | DI.RAD_ITS ---
Exam(s) XR WRIST RT COMPLETE EXAM: XR WRIST RT COMPLETE CLINICAL HISTORY: RT WRIST PAIN, M25.531. TECHNIQUE: 2D digital imaging was performed of the right wrist. Three views were obtained. Scaphoid , PA, lateral and oblique views were obtained. COMPARISON: CR XR WRIST RT COMPLETE from 03/19/2023 FINDINGS: BONES: No acute fracture is present. No bony destructive lesion is seen. There is a very tiny density at the dorsal aspect of the wrist on the lateral view which may represent a remote injury. JOINTS: The carpal bones are normally aligned. The joint spaces are well maintained. SOFT TISSUE: Vascular calcifications are present. IMPRESSION: No acute abnormality. DATA REPOSITORY: RADIATION DOSE DELIVERED:
== END ==
PROVIDERS: PCP Physician Assistant; Visit Provider Nurse Practitioner Family
DX: M25.531 Pain in right wrist (principal)
CPT/HCPCS: 73110

== ENCOUNTER 2023-11-04 08:23 | Outpatient (CLI) | payer MEDICARE, MEDICAID, SELFPAY ==
[2023-11-04 09:05] LABS: Abs Immature Grans 0.03 10^3/uL (0.0-0.06); Absolute Basophil Count 0.06 10^3/uL (0.0-0.2); Absolute Lymphocyte Count 1.84 10^3/uL (1.2-3.4); Absolute Neutrophil Count 3.79 10^3/uL (1.2-6.7); Basophils % 0.9; Eosinophils % 1.6; HCT 40.7 % (40.0-50.0); HGB 14.2 g/dL (13.5-17.5); Immature Grans % 0.5; Lymphocytes % 28.7; MCH 34.2 pg (27.0-33.0); MCHC 34.9 % (32.0-36.0); MCV 98 fL (80-95); Monocytes % 9.3; Platelet Count 259 10^3/uL (130-400); RBC 4.15 10^6/uL (4.36-5.78); RDW-SD 43.6 fL; WBC 6.42 10^3/uL (4.4-10.8)
[2023-11-04 09:32] LABS: ALT 18 U/L (16-63); AST 19 U/L (15-37); Albumin 3.8 g/dL (3.4-5.0); Alkaline Phosphatase 80 U/L (46-116); Anion Gap 8.6 mmol/L (3-11); BUN 13 mg/dL (7-18); Bilirubin, Total 0.5 mg/dL (0.2-1.0); CO2 29.4 mmol/L (21.0-32.0); CREATININE 0.9 mg/dL (0.70-1.30); Calcium 8.4 mg/dL (8.5-10.1); Calculated LDL 86 mg/dL (<100); Chloride 100 mmol/L (98-107); Cholesterol 150 mg/dL (<200); Estimated GFR 88.51 (mL/min/1.73m2); Glucose 130 mg/dL (74-106); HDL Cholesterol 50 mg/dL (40-60); Sodium 138 mmol/L (136-145); TSH (W/Ref FT4) 1.33 uIU/mL (0.36-3.74); Triglyceride 73 mg/dL (<150)
[2023-11-04 09:53] LABS: Hemoglobin A1C 5.7 % (<5.7)
== END 2023-11-04 08:24 | disposition home or self-care (01) ==
LOC: LBO 08:25
PROVIDERS: PCP Physician Assistant; Visit Provider Nurse Practitioner Family
DX: E78.5 Hyperlipidemia, unspecified (principal); I10 Essential (primary) hypertension
CPT/HCPCS: 36415; 80053; 80061; 83036; 84443; 85025

== ENCOUNTER → 2023-11-12 11:51 | Outpatient (CLI) | payer MEDICARE, MEDICAID, SELFPAY ==
[2023-11-12] MEDS: Normal Saline - Diluent 50 ML VIAL IJ (13:41)
[2023-11-12] MEDS: Omnipaque 350 MG/ML 500 ML BTL-Imaging package 85 ML IJ (13:42)
--- NOTE | 2023-11-12 13:50 | DI.CT_ITS ---
Exam(s) CT BRAIN NECK CTA EXAM: CT BRAIN NECK CTA CLINICAL HISTORY: SWELLING/PAIN/TINGLING IN NECK. TECHNIQUE: Imaging Protocol: Axial CT angiography was performed with multi-slice acquisition and mu lti-planar and/or 3D reconstructions. CONTRAST MATERIAL: Intravenous: Omnipaque 350 contrast volume:85 mL COMPARISON: CT CT HEAD CERVICAL SPINE WO from 06/24/[address] CHEST/ABD/PEL W from 06/24/2023 FINDINGS: CT Head W/O and W: Ventricles and Extra axial spaces: Normal in size and morphology for the patient's age. Hemorrhage: None. Cerebral parenchyma: No findings are seen to suggest an acute territorial infarct. There are subtle areas of decreased attenuation in the white matter consistent with chronic microvascular ischemic dis ease. There is no mass effect. Midline shift: None. Brainstem/Cerebellum: Normal. Calvarium: Normal. Visualized Paranasal sinuses/Mastoids: Clear. Soft Tissues: Unremarkable. Enhancement: Unremarkable. CTA Neck W: Common Carotid: Right: No dissection, occlusion or significant stenosis. Left: No dissection, occlusion or significant stenosis. External Carotid: Right: No occlusion or significant stenosis. Left: No occlusion or significant stenosis. Internal Carotid: Right: No dissection, occlusion or significant stenosis. Atherosclerotic calcification is seen in th e proximal right internal carotid artery without significant stenosis. Left: No dissection, occlusion or significant stenosis. There is atherosclerotic calcification at th e origin of the left internal carotid artery without significant stenosis. Vertebral Artery: Right: The right vertebral artery is non dominant. It is not visualized in its midpoint and is aki nstituted at approximately C4-C5. Left: No dissection, occlusion or significant stenosis. Lung Apices: Normal. Bones: Within normal limits for the patient's age. There is straightening of the normal cervical lord osis. There does appear to be neural foraminal narrowing bilaterally at C3-C4. Soft Tissues: Normal. Thyroid gland: Unremarkable. CTA Brain W: Internal Carotid Arteries: Minimal atherosclerotic calcification is seen. No significant stenosis or occlusion is seen. No aneurysm is present. Anterior Cerebral Arteries: Right: No aneurysm, occlusion or significant stenosis. Left: No aneurysm, occlusion or significant stenosis. Middle Cerebral Arteries: Right: No aneurysm, occlusion or significant stenosis. Left: No aneurysm, occlusion or significant stenosis. Posterior Cerebral Arteries: The posterior cerebral arteries arise predominantly from the posterior c ommunicating arteries. Right: No aneurysm, occlusion or significant stenosis. Left: No aneurysm, occlusion or significant stenosis. Vertebral Arteries: Right: No aneurysm, occlusion or significant stenosis. Left: No aneurysm, occlusion or significant stenosis. Basilar Artery: No aneurysm, occlusion or significant stenosis. IMPRESSION: 1. No large vessel occlusion or significant stenosis on the CT angiography of the head. 2. No acute intracranial process. 3. The right vertebral artery is non dominant. It is absent in its midportion and is reconstituted a t about the C4-C5 level. This may represent marked stenosis/occlusion. 4. Multilevel degenerative changes in the cervical spine. Note is made of bilateral neural foraminal stenosis at C3-C4. RADIATION DOSE DELIVERED: 2,285.56mGy.cm Total DLP DATA REPOSITORY: All CT scans at this facility are submitted to the National Radiology Data Registry (NRDR) Dose Index Registry (DIR) with the [employer] (ACR). RADIATION OPTIMIZATION: All CT scans at this facility use at least one of these dose optimization te chniques: automated exposure control; mA and/or kV adjustment per patient size (includes targeted exa ms where dose is matched to clinical indication); or iterative reconstruction.
== END ==
PROVIDERS: PCP Physician Assistant; Visit Provider Nurse Practitioner Family
DX: M50.121 Cervical disc disorder at C4-C5 level with radiculopathy (principal)
CPT/HCPCS: 70496; 70498

== ENCOUNTER → 2024-01-17 17:16 | Outpatient (CLI) | payer MEDICARE, MEDICAID, SELFPAY ==
--- NOTE | 2024-01-17 | DI.RAD_ITS ---
Exam(s) XR CHEST 2V PA LATERAL EXAM: XR CHEST 2V PA LATERAL CLINICAL HISTORY: Persistent cough and contestion TECHNIQUE: 2D digital imaging was performed. Two views. COMPARISON: CR XR CHEST 2V PA LATERAL from 10/25/2021 FINDINGS: HEART: Normal size. Aorta: Not dilated. PULMONARY VASCULATURE: Normal. MEDIASTINUM: Unremarkable. LUNGS: Clear. PLEURAL SPACE: No pleural effusion or pneumothorax. BONE:Unremarkable for age. SOFT TISSUES: Unremarkable. IMPRESSION: No acute abnormality. DATA REPOSITORY: RADIATION DOSE DELIVERED:
== END ==
PROVIDERS: PCP Nurse Practitioner Family; Visit Provider Nurse Practitioner Family
DX: R05.8 Other specified cough (principal)
CPT/HCPCS: 71046

== ENCOUNTER 2024-09-22 00:43 | Outpatient (CLI) | payer MEDICARE, MEDICAID, SELFPAY ==
--- NOTE | 2024-09-22 | DI.CT_ITS ---
Exam(s) CT HEAD WO EXAM: CT HEAD WO CLINICAL HISTORY: LOSS OF CONSCIOUSNESS, R40.20 UNSPECIFIED COMA. TECHNIQUE: Imaging Protocol: Axial computed tomography images with coronal and sagittal reformatted images were created and reviewed COMPARISON: CT CT BRAIN NECK CTA from 11/12/2023 FINDINGS: Ventricles and Extra axial spaces: Normal in size and morphology for the patient's age. Hemorrhage: None. Cerebral parenchyma: No evidence of acute infarct or mass. Minimal white matter changes of microvas cular disease. Mild atrophy consistent with the patient's age. Midline shift: None. Brainstem/Cerebellum: Normal. Calvarium: Normal. Visualized Paranasal sinuses:Clear. Mastoids: Clear. Soft Tissues: Unremarkable. ORBITS: Unremarkable. PITUITARY: Not enlarged. IMPRESSION: No acute intracranial process. RADIATION DOSE DELIVERED: 966.28mGy.cm Total DLP DATA REPOSITORY: All CT scans at this facility are submitted to the National Radiology Data Registry (NRDR) Dose Index Registry (DIR) with the [employer] (ACR). RADIATION OPTIMIZATION: All CT scans at this facility use at least one of these dose optimization te chniques: automated exposure control; mA and/or kV adjustment per patient size (includes targeted exa ms where dose is matched to clinical indication); or iterative reconstruction.
== END 2024-09-22 01:03 ==
LOC: DI 00:44
PROVIDERS: PCP Nurse Practitioner Family; Visit Provider Nurse Practitioner Family
DX: R40.20 Unspecified coma (principal)
CPT/HCPCS: 70450

== ENCOUNTER 2025-01-12 13:59 | Outpatient (CLI) | payer MEDICARE, MEDICAID, SELFPAY ==
--- NOTE | 2025-01-12 | DI.RAD_ITS ---
Exam(s) XR HAND LT COMPLETE EXAM: XR HAND LT COMPLETE CLINICAL HISTORY: FX AT WRIST AND OR HAND LEVEL, S62.90XA. TECHNIQUE: 2D digital imaging was performed. Three views. COMPARISON: CR LEFT WRIST COMPLETE + [place] from 09/24/2017 FINDINGS: BONES: No acute fracture is present. Old fracture deformity of the 5th metacarpal. No bony destructive lesion is seen. JOINTS: No dislocation present. Joint space narrowing of the interphalangeal joints of the fingers and thumb with mild periarticular spurring. Minimal degenerative changes at the 1st carpal metacarpal joint. SOFT TISSUE: Vascular calcifications. IMPRESSION: Degenerative changes greatest of the interphalangeal joints of the fingers. No acute abnormality. DATA REPOSITORY: RADIATION DOSE DELIVERED:
--- NOTE | 2025-01-12 14:46 | DI.CT_ITS ---
Exam(s) CT HEAD WO EXAM: CT HEAD WO CLINICAL HISTORY: INJURY OF HEAD, SUBSEQUENT ENCOUNTER, S09.90XA. S09.90XD. TECHNIQUE: Imaging Protocol: Axial computed tomography images with coronal and sagittal reformatted images were created and reviewed COMPARISON: CT CT HEAD WO from 09/22/2024 FINDINGS: Ventricles and Extra axial spaces: Normal in size and morphology for the patient's age. Hemorrhage: None. Cerebral parenchyma: No evidence of acute infarct or mass. Minimal atrophy. Minimal white matter changes. Midline shift: None. Brainstem/Cerebellum: Normal. Bones: No skull or facial fractures. Visualized Paranasal sinuses:Clear. Mastoids: Clear. Soft Tissues: Unremarkable. ORBITS: Unremarkable. PITUITARY: Not enlarged. IMPRESSION: No acute intracranial process. RADIATION DOSE DELIVERED: Total DLP DATA REPOSITORY: All CT scans at this facility are submitted to the National Radiology Data Registry (NRDR) Dose Index Registry (DIR) with the [employer] (ACR). RADIATION OPTIMIZATION: All CT scans at this facility use at least one of these dose optimization techniques: automated exposure control; mA and/or kV adjustment per patient size (includes targeted exams where dose is matched to clinical indication); or iterative reconstruction.
== END 2025-01-12 14:19 ==
PROVIDERS: PCP Nurse Practitioner Family; Visit Provider Nurse Practitioner Family
DX: S09.90XA Unspecified injury of head, initial encounter (principal); S62.92XA Unspecified fracture of left hand, initial encounter for closed fracture; X58.XXXA Exposure to other specified factors, initial encounter
CPT/HCPCS: 70450; 73130

== ENCOUNTER 2025-04-11 16:59 | Observation (INO) | payer MEDICARE, MEDICAID, SELFPAY ==
[2025-04-11] VITALS (20 sets, daily range): BP systolic 112–160; BP diastolic 68–91; PULSE 69–104; RESP 11–26; TEMP 37.7; O2SAT 92–97
--- NOTE | 2025-04-11 | DI.CT_ITS ---
Exam(s) CT CHEST WO EXAM: CT CHEST WO CLINICAL HISTORY: nodules in lung. TECHNIQUE: Imaging protocol: Axial computed tomography images were obtained and coronal and sagittal reformatted images were created and reviewed. Lung Computer Aided Detection (CAD) was utilized. COMPARISON: CT CT CHEST W from 10/13/[address] CHEST/ABD/PEL W from 06/24/2023 FINDINGS: The examination is limited due to patient motion artifact. Tracheobronchial tree: Patent where visualized. No bronchiectasis is present. Pulmonary parenchyma: [id number] centrilobular emphysematous changes are present. There are no focal consolidating infiltrates. There is atelectasis in the dependent portions of the lungs. There are stable pulmonary nodule in the right middle lobe. There are no new pulmonary nodules. Mediastinum and Rhona: No dominant adenopathy or fluid collection. The esophagus is unremarkable. Thyroid gland: Unremarkable. Pleura: No effusion or pneumothorax. Heart: Cardiomegaly. Two vessel coronary artery calcifications are present. No pericardial effusion. Aorta: The ascending thoracic aorta measures 4.1 x 3.9 cm. Atherosclerotic calcification is present. The aortic arch measures up to 3.9 cm. Upper abdomen: Cholelithiasis. The gallbladder is distended measuring 4.3 cm in diameter. Lymph nodes: Within normal limits. Soft tissues: Unremarkable. Bones:Within normal limits for the patient's age. IMPRESSION: 1. There are no focal consolidating infiltrates. 2. Stable pulmonary nodules. 3. Distended gallbladder with a gallstone. There is no biliary ductal dilatation. If further imaging is warranted, gallbladder ultrasound should be considered. 4. The preliminary [facility] report was reviewed. RADIATION DOSE DELIVERED: 206.15mGy.cm Total DLP 206.15mGy.cm Total DLP DATA REPOSITORY: All CT scans at this facility are submitted to the National Radiology Data Registry (NRDR) Dose Index Registry (DIR) with the [employer] (ACR). RADIATION OPTIMIZATION: All CT scans at this facility use at least one of these dose optimization techniques: automated exposure control; mA and/or kV adjustment per patient size (includes targeted exams where dose is matched to clinical indication); or iterative reconstruction.
--- NOTE | 2025-04-11 | DI.CT_ITS ---
Exam(s) CT CHEST/ABD/PEL W EXAM: CT CHEST/ABD/PEL W CLINICAL HISTORY: ams TECHNIQUE: Imaging Protocol: Axial computed tomography images with coronal and sagittal reformatted images were created and reviewed. Lung Computer Aided Detection (CAD) was utilized. CONTRAST MATERIAL: Intravenous: Omnipaque 350 contrast volume:80 mL Oral: No COMPARISON: CT CT CHEST W from 10/13/[address] CHEST/ABD/PEL W from 06/24/[address] CHEST WO from 04/11/2025 FINDINGS: CHEST: Tracheobronchial tree: Patent where visualized. No evidence of bronchiectasis. Pulmonary parenchyma: Moderate centrilobular emphysematous changes are present. Atelectatic changes are seen in the lung bases. There are stable right middle lobe pulmonary nodules. There are no new pulmonary nodules. There are no focal consolidating infiltrates present. Visualized thyroid gland: Unremarkable. Mediastinum and Rhona: No dominant adenopathy or fluid collection. The esophagus is unremarkable. Pleura: No effusion or pneumothorax. Heart: Mildly enlarged heart. Coronary artery calcifications are present. No pericardial effusion. Pulmonary arteries: Due to the timing of the bolus, the peripheral pulmonary arteries are suboptimally opacified for evaluation of pulmonary emboli. There is no large central pulmonary embolism present. Aorta: The ascending thoracic aorta measures 4.0 x 4.0 cm. Atherosclerotic calcification is present. Lymph nodes: Within normal limits. Soft tissues: Unremarkable. Bones:Within normal limits for the patient's age. ABDOMEN: Liver: Normal density. No measurable mass. Portal, Superior Mesenteric, and Splenic Veins: Unremarkable. Gallbladder and Biliary Tract: There is a gallstone present. The gallbladder diameter is 4.2 cm. There is no gallbladder wall thickening or biliary ductal dilatation. There is no pericholecystic fluid. Pancreas: Normal density, no abnormal calcifications or inflammatory process. Spleen: Normal. Adrenals: No masses seen. Kidneys: Normal size, contour and axis. No radiodense stones or obstructive uropathy. No masses seen. Abdominal Aorta: Abdominal portion non-dilated. Atherosclerotic calcification is present. Bowel: No obstruction or bowel wall thickening. There is a moderate amount of stool throughout the colon which may reflect constipation. There is no evidence of appendicitis. Peritoneal Cavity: No ascites, collection or mesenteric inflammatory response. No free air. Lymph Nodes: Within normal limits. Bones: Within normal limits for the patient's age. There are laminectomies at L3 and L4. Soft Tissues: Unremarkable. PELVIS: Bladder: Symmetric distention, no gross wall thickening. Reproductive Organs: Unremarkable as visualized. Lymph Nodes: Within normal limits. Bones: Within normal limits. IMPRESSION: 1. Cholelithiasis. No biliary ductal dilatation. No CT findings to suggest acute cholecystitis. 2. No acute abdominal or pelvic process. 3. There is no acute pulmonary process. 4. Stable right middle lobe pulmonary nodules. 5. The preliminary [facility] report was reviewed. RADIATION DOSE DELIVERED: 202.21mGy.cm Total DLP DATA REPOSITORY: All CT scans at this facility are submitted to the National Radiology Data Registry (NRDR) Dose Index Registry (DIR) with the [employer] (ACR). RADIATION OPTIMIZATION: All CT scans at this facility use at least one of these dose optimization techniques: automated exposure control; mA and/or kV adjustment per patient size (includes targeted exams where dose is matched to clinical indication); or iterative reconstruction.
--- NOTE | 2025-04-11 17:30 | RT.EKG_ITS ---
APPROVED REPORT Exam: Resting ECG Reason for Exam: altered mental status Patient Location: E HR:81 bpm ECG Measurements Heart Rate 81 AXIS ME 152 P 45 QRSd 107 QRS -36 QT 380 T 12 QTc 441 Conclusion Sinus rhythm...normal P axis, V-rate 60- 99 Left axis deviation...QRS axis (-30,-90) No STEMI
--- NOTE | 2025-04-11 17:30 | DI.CT_ITS ---
Exam(s) CT HEAD WO EXAM: CT HEAD WO CLINICAL HISTORY: altered mental status. TECHNIQUE: Imaging Protocol: Axial computed tomography images with coronal and sagittal reformatted images were created and reviewed COMPARISON: CT CT HEAD WO from 01/12/2025 FINDINGS: There are no skull fractures. There is no fluid in the visualized paranasal sinuses. There is no evidence of intracranial hemorrhage, mass effect, or shift of midline structures. There are no extra-axial fluid collections. The ventricles are not enlarged or shifted and there is no blood within the ventricular system nor within the basal cisterns. IMPRESSION: No acute intracranial findings on this noninfused CT scan of the brain. Report called by myself to ER on 04/11/2025 at 6:40 p.m. RADIATION DOSE DELIVERED: 926.93mGy.cm Total DLP DATA REPOSITORY: All CT scans at this facility are submitted to the National Radiology Data Registry (NRDR) Dose Index Registry (DIR) with the [employer] (ACR). RADIATION OPTIMIZATION: All CT scans at this facility use at least one of these dose optimization techniques: automated exposure control; mA and/or kV adjustment per patient size (includes targeted exams where dose is matched to clinical indication); or iterative reconstruction.
[2025-04-11 18:00] LABS: HCT 37.2 % (40.0-50.0); HGB 12.6 g/dL (13.5-17.5); MCH 33.4 pg (27.0-33.0); MCHC 33.9 % (32.0-36.0); MCV 99 fL (80-95); MPV 9.5 fL (8.0-11.0); Platelet Count 187 10^3/uL (130-400); RBC 3.77 10^6/uL (4.36-5.78); RDW 11.9 % (11.8-14.1); RDW-SD 42.9 fL; WBC 6.64 10^3/uL (4.4-10.8)
[2025-04-11 18:12] LABS: Anion Gap 7.8 mmol/L (3-11); BUN 11 mg/dL (7-18); CO2 29.2 mmol/L (21.0-32.0); Calcium 8.8 mg/dL (8.5-10.1); Chloride 100 mmol/L (98-107); Estimated GFR 69.14 (mL/min/1.73m2); Glucose 116 mg/dL (74-106); Potassium 4.2 mmol/L (3.5-5.1); Sodium 137 mmol/L (136-145)
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
[2025-04-11 19:02] LABS: Cannabinoids THC Negative (Negative); METHADONE URINE SCREEN Negative (Negative)
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
[2025-04-11] MEDS: Normal Saline - Diluent 50 ML VIAL IJ (20:46)
[2025-04-11] MEDS: Omnipaque 350 MG/ML 100 ML BTL IJ (20:46)
--- NOTE | 2025-04-11 21:01 | W.PC.ACHO ---
Registration Status: REG ER Primary Language: Preferred Language: Georgian ED Information & Data Chief Complaint AMS/LOC 04/11/25 18:41 Triage Note pt found sitting in a 04/11/25 17:06 parking lot [place] the movie theatre. He is unsure how he got there. Can't tell me where he lives or what he ate for breakfast. Unable to answer open ended questions , only yes/no. EMS reports he has a truck in the parking lot where he was picked up Medical / Surgical History (Last Reviewed 04/11/25 @ 18:37 by Rubén Machado MD) Mild persistent asthma dependent on systemic steroids without complication Unspecified convulsions Generalized anxiety disorder Mild cognitive impairment, so stated Tension headache Macrocytic anemia Seizure disorder Cataract Osteoarthritis of left knee Muscle spasm Dysthymia Asthma Anxiety Cognitive developmental delay Rash, skin Nightmares Spinal stenosis Osteoarthritis, knee GERD (gastroesophageal reflux disease) Depression Low back pain Migraine headache Shoulder joint pain (Last Reviewed 04/11/25 @ 18:37 by Rubén Machado MD) History of hemorrhoidectomy H/O cataract removal with insertion of prosthetic lens Status post surgical removal of neoplasm of skin History of tooth extraction History of back surgery Most Recent Vital Signs Pulse 69 04/11/25 20:12 Pulse 76 04/11/25 20:10 Respiratory Rate 11 L 04/11/25 20:10 Respiratory Effort Normal 04/11/25 17:10 Blood Pressure 138/70 04/11/25 20:12 Blood Pressure Mean 97 04/11/25 20:12 Blood Pressure Position Sitting 04/11/25 17:06 Pulse Oximetry 96 04/11/25 20:10 Oxygen Delivery Method Room Air 04/11/25 17:06 Oxygen Flow Rate 0 04/11/25 17:06 Pain Level 0 04/11/25 17:06 Allergies Penicillins Allergy (Intermediate, Verified 11/28/23 13:20) Itching Sulfa (Sulfonamide Antibiotics) Allergy (Unknown, Verified 11/28/23 13:20) unknown aspirin Adverse Reaction (Severe, Verified 11/28/23 13:20) Stomch baldwin stomach baldwin oxaprozin (Oxaprozin) Adverse Reaction (Intermediate, Verified 11/28/23 13:20) Itching carbamazepine Adverse Reaction (Mild, Verified 11/28/23 13:20) Feel dopey mushrooms Adverse Reaction (Unknown, Uncoded 11/28/23 13:20) Nausea Active Medications Generic Name Dose Route Start Last Admin Trade Name Gisselle PRN Reason Stop Dose Admin Iohexol 100 ml 04/11/25 20:45 04/11/25 20:46 Omnipaque 350 Mg/Ml 100 Ml Btl IJ 05/11/25 23:59 70 ml DIRECTED ZINA Administration Sodium Chloride 50 ml 04/11/25 20:45 04/11/25 20:46 Normal Saline - Diluent 50 Ml Vial IJ 50 ml DIRECTED ZINA Administration IV IV Catheter Type [Right Peripheral IV Antecubital] IV Catheter Gauge [Right 18 Antecubital] Diet Orders Category Date Time Status Regular/Normal [DIET] Nutrition 04/12/25 Breakfast Ordered Diagnostics 04/11/25 04/11/25 Range/Units 18:34 17:49 WBC 6.64 (4.4-10.8) 10^3/uL RBC 3.77 L (4.36-5.78) 10^6/uL Hgb 12.6 L (13.5-17.5) g/dL Hct 37.2 L (40.0-50.0) % MCV 99 H (80-95) fL MCH 33.4 H (27.0-33.0) pg MCHC 33.9 (32.0-36.0) % RDW 11.9 (11.8-14.1) % Plt Count 187 (130-400) 10^3/uL MPV 9.5 (8.0-11.0) fL Sodium 137 (136-145) mmol/L Potassium 4.2 (3.5-5.1) mmol/L Chloride 100 (98-107) mmol/L Carbon Dioxide 29.2 (21.0-32.0) mmol/L Anion Gap 7.8 (3-11) mmol/L BUN 11 (7-18) mg/dL Creatinine 1.1 (0.70-1.30) mg/dL Est GFR (CKD-EPI 2020) 69.14 (mL/min/1.73m2) Glucose 116 H (74-106) mg/dL Calcium 8.8 (8.5-10.1) mg/dL Urine Opiates Screen Negative (Negative) Urine Methadone Screen Negative (Negative) Ur Barbiturates Screen Negative (Negative) Ur Tricyclics Screen Negative (Negative) Ur Amphetamines Screen Negative (Negative) U Benzodiazepines Scrn Negative (Negative) Urine Cocaine Screen Negative (Negative) Ur THC Screen Negative (Negative) Ethyl Alcohol < 3.0 (<10) mg/dL Intake and Output - 24 Hour Total 04/11/25 16:52 thru 04/11/25 17:06 Weight 70.307 kg Falls Risk Assessment History of Falls No History 04/11/25 18:02 Contributing Factors Confusion 04/11/25 18:02 Ambulatory Aids Independent 04/11/25 18:02 Tubes/Lines None 04/11/25 18:02 Gait Evaluation No gait disturbance 04/11/25 18:02 Cognition No cognitive impairment 04/11/25 18:02 Fall Total Score 3 04/11/25 18:02 Level of Risk Standard/Low Risk 04/11/25 18:02 Problems (Last Reviewed 04/11/25 @ 18:37 by Rubén Machado MD) Seizure (Acute) Mental status alteration (Acute) Anxiety disorder (Acute) Mood disorder with depressive features due to general medical condition (Acute) Schizophrenia (Chronic) v v v v v v v v v Sending and/or Receiving Nurses: Please use comment section below to note any information pertinent to the patient hand-off not included above. Information / Comments: Report received from ED. Pt is pleasantly confused. On RA. A+Ox1. Ax1 mobility. Currently in CT before heading to med surg. Report received from: Elsy ORTIZ RN
[2025-04-11] MEDS: Enoxaparin 40 MG/0.4 ML SYR SC (21:27)
[2025-04-11 21:43] LABS: Glucose Negative (Negative)
--- NOTE | 2025-04-11 21:44 | DI.VRAD_ITS ---
PROCEDURE INFORMATION: Exam: CT Chest With Contrast; Diagnostic Exam date and time: 04/11/2025 8:57 PM Age: 79 years old Clinical indication: Abdominal pain; Tenderness; Other: Unspecified; AMS, upper abd discomfort, nodules in lung TECHNIQUE: Imaging protocol: Diagnostic computed tomography of the chest with contrast. 3D rendering (Not supervised by radiologist): MIP and/or 3D reconstructed images were created by the technologist. COMPARISON: CT CHEST WO 04/11/2025 8:41 PM FINDINGS: Lungs: There is mild centrilobular emphysema with an apical predominance. Mild atelectasis is present at the dependent lung bases. There is a 4 mm right middle lobe pulmonary nodule. The lungs are otherwise clear. Pleural spaces: Unremarkable. No pneumothorax. No pleural effusion. Heart: Heart is normal size. No pericardial effusion. Coronary arteries: There are scattered atheromatous coronary artery calcifications. Lymph nodes: No enlarged lymph nodes. Vasculature: Atheromatous calcifications are present within the visualized thoracic aorta. Bones/joints: Bones have a normal appearance. No acute fracture or suspicious bone lesion. Soft tissues: Unremarkable. IMPRESSION: No acute pulmonary findings. PROCEDURE INFORMATION: Exam: CT Abdomen And Pelvis With Contrast Exam date and time: 04/11/2025 8:57 PM Age: 79 years old Clinical indication: Abdominal pain; Tenderness; Other: Unspecified; AMS, upper abd discomfort, nodules in lung TECHNIQUE: Imaging protocol: Computed tomography of the abdomen and pelvis with contrast. 3D rendering (Not supervised by radiologist): MIP and/or 3D reconstructed images were created by the technologist. COMPARISON: CT CHEST/ABD/PEL W 06/24/2023 11:49 PM FINDINGS: Liver: The liver has a normal appearance. Gallbladder and biliary ducts: Multiple calcified stones are present in the gallbladder fundus. No gallbladder wall thickening or pericholecystic fluid. Pancreas: The pancreas demonstrates normal size. No pancreatic ductal dilatation. Spleen: The spleen demonstrates normal size. Adrenal glands: The adrenal glands have a normal appearance. Kidneys and ureters: The kidneys are normal in size. No hydronephrosis. No hydroureter or ureterolithiasis. Stomach and bowel: The bowel demonstrates overall normal caliber and wall thickness. Appendix: The appendix is thin walled. Intraperitoneal space: Unremarkable. No free air. No significant fluid collection. Vasculature: There are dense atheromatous calcifications throughout the aorta and iliac arteries. Lymph nodes: No enlarged lymph nodes. Urinary bladder: The bladder is thin walled and fluid filled. Reproductive: Unremarkable as visualized. Bones/joints: Unremarkable. No acute fracture. Soft tissues: Unremarkable. IMPRESSION: 1. No acute intra-abdominal findings. 2. Normal appendix. 3. Cholelithiasis. No findings to suggest choledocholithiasis or acute cholecystitis. Dictated and Authenticated by: Jaylene Cerna MD. Orderin Ed Ayers MD
[2025-04-11 21:51] LABS: C & S Indicated? No; RBC 0-2 HPF (0-2); WBC 0-2 HPF (0-5)
[2025-04-12 02:30] LABS: COVID-19 PCR Negative (Negative); RSV PCR Negative (Negative)
--- NOTE | 2025-04-12 04:53 | DI.VRAD_ITS ---
PROCEDURE INFORMATION: Exam: CT Chest Without Contrast; Diagnostic Exam date and time: 04/11/2025 8:41 PM Age: 79 years old Clinical indication: Nodules in lung TECHNIQUE: Imaging protocol: Diagnostic computed tomography of the chest without contrast. 3D rendering (Not supervised by radiologist): MIP and/or 3D reconstructed images were created by the technologist. COMPARISON: CT CHEST/ABD/PEL W 06/24/2023 11:49 PM FINDINGS: Thyroid: Thyroid gland partially excluded from view but grossly unremarkable through its visualized portion. Lungs: Emphysematous changes in the upper lung zones.. Mild dependent atelectasis. Mild smooth thickening of the interlobular pulmonary septa. Right middle lobe pulmonary nodules measuring 4 mm anteriorly and 4 mm laterally in the right middle lobe on image 87 of series 2, 3 mm on image 91 of series 2, 3 mm on image 92 of series 2, and 3 mm on image 98 of series 2. Pleural spaces: No pleural effusion or pneumothorax. Heart: Top normal-sized heart. Coronary artery calcification. Lymph nodes: No pathologically enlarged mediastinal or hilar lymph nodes. Vasculature: No thoracic aortic aneurysm. Diaphragm: Elevation of the right hemidiaphragm. Gallbladder and biliary ducts: Prominent gallbladder distention. 8 mm x 12 mm gallstone. No biliary dilatation seen through the volume of imaging. Bones/joints: Lower ribs partially excluded from view and incompletely evaluated. Otherwise, no acute fracture seen among the bones of the chest. Spinal degenerative change with small anterior osteophytes at multiple levels. Soft tissues: No gross soft tissue mass or fluid collection seen in the chest wall. IMPRESSION: 1. Right middle lobe pulmonary nodules, as described. 2. Emphysematous changes in the upper lung zones. 3. Mild smooth thickening of the interlobular pulmonary septa, possibly an artifactual appearance created by imaging at submaximal inspiration although interstitial pulmonary edema can also produce this appearance. Clinical correlation is recommended. 4. Prominent gallbladder distention. 8 mm x 12 mm gallstone. No biliary dilatation seen through the volume of imaging. Dictated and Authenticated by: Jameel Thacker MD. Orderin Ed Ayers MD
[2025-04-12 06:00] LABS: Abs Immature Grans 0.02 10^3/uL (0.0-0.06); HCT 37.8 % (40.0-50.0); HGB 12.8 g/dL (13.5-17.5); Immature Grans % 0.4 %; MCH 34.0 pg (27.0-33.0); MCHC 33.9 % (32.0-36.0); MCV 100 fL (80-95); MPV 9.5 fL (8.0-11.0); Platelet Count 192 10^3/uL (130-400); RBC 3.77 10^6/uL (4.36-5.78); RDW 11.9 % (11.8-14.1); RDW-SD 43.7 fL; WBC 5.25 10^3/uL (4.4-10.8)
[2025-04-12 06:12] LABS: Ammonia 16 umol/L (11-32)
[2025-04-12 06:31] LABS: Iron 39 ug/dL (65-175); Total Iron Binding Capacity 228 ug/dL (250-450); Transferrin Sat 17 % (20-55)
[2025-04-12 06:55] LABS: ALT 14 U/L (16-63); AST 18 U/L (15-37); Albumin 3.3 g/dL (3.4-5.0); Alkaline Phosphatase 86 U/L (46-116); Anion Gap 7.2 mmol/L (3-11); BUN 13 mg/dL (7-18); Bilirubin, Total 0.4 mg/dL (0.2-1.0); CO2 28.8 mmol/L (21.0-32.0); Calcium 8.6 mg/dL (8.5-10.1); Chloride 102 mmol/L (98-107); Estimated GFR 87.96 (mL/min/1.73m2); Glucose 101 mg/dL (74-106); Potassium 4.2 mmol/L (3.5-5.1); Sodium 138 mmol/L (136-145); Total Protein 6.4 g/dL (6.4-8.2)
[2025-04-12 07:19] LABS: Folate 7.2 ng/mL (8.6-20.0); TSH (W/Ref FT4) 1.46 uIU/mL (0.36-3.74); Vitamin B12 275 pg/mL (193-986)
[2025-04-12 07:34] VITALS: BP 120/70; PULSE 55; RESP 17; TEMP 36.7; O2SAT 96
[2025-04-12] MEDS: risperiDONE 0.5 MG TAB 3 MG PO (09:28)
[2025-04-12] MEDS: DULoxetine 30 MG CAP PO (09:32)
--- NOTE | 2025-04-12 09:55 | TELEFU_ITS ---
Date of service: 04/12/25 Time of Service: 10:07 Nutrition Note NOTE: Pt brought in by ambulance after found sitting in parking lot with AMS. Hx of seizures and mood disorder. Current weight today looks to be in error. Looking at weight hx his weight appears stable, with current BMI congruent with class I obesity. current labs reflect anemia with Hgb/Hct 12.8/37.8 and folate low. urine negative for etoh. Pt currently with AMS, not appropriate for accurate nutrition interview. Ordered for regular diet with normal consistencies. Mushroom allergy noted - relayed to kitchen. Took 100% at [facility] this morning. Nutr Dx: folate deficiency as evidenced by laboratory value today. Recommend 7.5-15mg l-methylfolate or 30mg Xaquil daily to correct deficiency/adjunct tx for schizophrenia Will continue to monitor and check in with patient regarding preferences and any special nutrition needs while admitted. Time Spent in Nutritional Counseling and Treatment: 0
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
[2025-04-12 23:41] LABS: Adenovirus DNA Result Negative (Negative); Metapneumovirus RNA Result Negative (Negative); Parainfluenza Type1 RNA Result Negative (Negative); Parainfluenza Type2 RNA Result Negative (Negative); Parainfluenza Type3 RNA Result Negative (Negative); Parainfluenza Type4 RNA Result Negative (Negative); Rhinovirus RNA Result Positive (Negative)
== END 2025-04-12 13:15 | disposition home or self-care (01) ==
LOC: ER 19:35 → MS 21:26
PROVIDERS: Admitting Provider Hospitalist; Emergency Provider Emergency Medicine; PCP Nurse Practitioner Family; Responsible Provider Family Medicine; Visit Provider Hospitalist
DX: R41.82 Altered mental status, unspecified (principal); R56.9 Unspecified convulsions; F20.9 Schizophrenia, unspecified; F06.31 Mood disorder due to known physiological condition with depressive features; D53.9 Nutritional anemia, unspecified; Z79.899 Other long term (current) drug therapy; R91.8 Other nonspecific abnormal finding of lung field; I95.9 Hypotension, unspecified; M54.50 Low back pain, unspecified; M47.22 Other spondylosis with radiculopathy, cervical region; F41.1 Generalized anxiety disorder; J45.909 Unspecified asthma, uncomplicated; K21.9 Gastro-esophageal reflux disease without esophagitis; F51.5 Nightmare disorder
CPT/HCPCS: 00123; 36415; 71250; 74177; 80048; 80053; 80307; 85027; 87632; 87637; 93005; 97162; 99285; J1650; 70450; 71260; 80185; 80320; 81003; 81015; 82140; 82607; 82746; 83540; 83550; 84443; 85025; 93010; 99222; 99238; G0378; J3490